=== PATIENT | female | born 1955 | race Caucasian/White ===

== ENCOUNTER 2017-01-18 09:14 | Emergency (ER) | payer MEDICARE ==
--- NOTE | 2017-01-18 09:57 | ED ---
Lower Extremity Injury HPI - General Chief Complaint: Extremity Injury, Lower Stated Complaint: RT ANKLE INJURY Time Seen by Provider: 01/18/17 09:38 Source: patient, RN notes reviewed Mode of arrival: wheelchair Limitations: no limitations - History of Present Illness Initial Comments: 61-year-old female presents to the emergency department with a chief complaint of right ankle and right foot pain. Patient felt this pain last night after playing with her dog. Patient states that she felt her ankle roll and she felt and heard a pop. Patient states that she hasn't had any other symptoms with this. Patient states that she is able to injury however with pain. Patient states she had not got home which she took but that did not seem to help with the pain either. Patient states it hurts all the way into the foot. Patient states that she has not had any other symptoms with this. Patient denies any other injury from the incident. Patient states the pain is moderate. Patient states symptoms that'll shoot all the way up the leg. Patient denies any recent fever, chills, shortness of breath, chest pain, back pain, abdominal pain, nausea vomiting, numbness or tingling, dysuria or hematuria, constipation or diarrhea, headaches or visual changes, or any other current symptoms. - Related Data Previous Rx's Medication Instructions Recorded Ibuprofen [Motrin] 600 mg PO Q6HR PRN #20 tab 01/18/17 Allergies Allergy/AdvReac Type Severity Reaction Status Date / Time Sulfa (Sulfonamide AdvReac Anaphylaxis Verified 01/18/17 09:28 Antibiotics) Review of Systems ROS Statement: Those systems with pertinent positive or pertinent negative responses have been documented in the HPI. ROS Other: All systems not noted in ROS Statement are negative. Past Medical History History of Any Multi-Drug Resistant Organisms: None Reported Past Psychological History: No Psychological Hx Reported Smoking Status: Never smoker Past Alcohol Use History: None Reported Past Drug Use History: None Reported General Exam - General Exam Comments Initial Comments: General: The patient is awake and alert, in no distress, and does not appear acutely ill. Neck: The neck is supple, there is no tenderness. Cardiovascular: There is a regular rate and rhythm. No murmur, rub or gallop is appreciated. Respiratory: Lungs are clear to auscultation, respirations are non-labored, breath sounds are equal. No wheezes, stridor, rales, or rhonchi. Musculoskeletal: Sensation intact to plus pulses. Right lower extremity. Full range of motion of right knee with no proximal tenderness. Patient does have tenderness over the lateral malleolus and along the forefoot with associated swelling. No tenderness to palpation along the medial malleolus. Less than 2 capillary refill throughout. Neurological: CN II-XII intact, There are no obvious motor or sensory deficits. Coordination appears grossly intact. Speech is normal. Skin: Skin is warm and dry and no rashes or lesions are noted. Psychiatric: Normal mood and affect. Limitations: no limitations Course Vital Signs 01/18/17 09:24 Temperature 987.7 F H Pulse Rate 75 Respiratory 20 Rate Blood Pressure 124/84 O2 Sat by Pulse 98 Oximetry Procedures - Orthopedic Splinting/Casting Injury #1 Side: right Lower Extremity Injury Location: ankle Lower Extremity Immobilizer: AirCast, Christiano wrap Medical Decision Making - Medical Decision Making 61-year-old female presents with a right foot and ankle injury. This and x- rays reviewed that show possible old injury. At this time patient's pain is more along the forefoot then at the location of the distal fibula. At this time we discussed we'll place an Christiano bandage as well as an Aircast we discussed with her for crutches. We did discuss the possibility of this being a new fracture versus an old fracture and we discussed follow-up with orthopedic for continued care. We discussed ice he did this using her home [place] as we discussed use Motrin as well for pain control. We discussed all the patient's questions. She stated that she understood and is in agreement plan. This time she will be discharged home. - Radiology Data Radiology results: report reviewed, image reviewed Disposition Clinical Impression: Right ankle sprain Disposition: HOME SELF-CARE Condition: Stable Instructions: Ankle Sprain (ED) Additional Instructions: Please use medication as discussed. Please follow up with family doctor if symptoms have not improved over the next two days. Please return to the emergency room if your symptoms increase or worsen or for any other concerns. Prescriptions: Ibuprofen [Motrin] 600 mg PO Q6HR PRN #20 tab PRN Reason: Pain Referrals: Corey Castro MD [Primary Care Provider] - 1-2 days Justino Blanchard MD [STAFF PHYSICIAN] - 1-2 days Time of Disposition: 10:41
--- NOTE | 2017-01-18 10:31 | XR ---
Right ankle HISTORY: Trauma and pain 3 views of the right ankle Correlation to right foot same date Bone mineralization is maintained. Ossific density distal to the fibula appears well-corticated and i s felt not likely to be acute. No dislocation. There is a plantar calcaneal spur. IMPRESSION: Suspect old trauma distal fibula.
--- NOTE | 2017-01-18 10:32 | XR ---
Right foot HISTORY: Trauma and pain 3 views of the right foot correlated to right ankle same date The ossific density distal to the fibula appears well-corticated. Alignment, joint spaces, bone elevator examiner alization are maintained. No evident dislocation. Some degenerative changes are present. There is a p lantar calcaneal spur. IMPRESSION: No acute osseous injury.
[2017-01-18] MEDS ORDERED: KETOROLAC 60 MG/2 ML VIAL IM STA (10:39)
[2017-01-18 11:16] VITALS: BP 128/81; PULSE 90; RESP 16; TEMP 97.9
== END 2017-01-18 11:21 | disposition home or self-care (01) ==
LOC: EC 09:14
DX: S93.401A Sprain of unspecified ligament of right ankle, initial encounter (principal); Z88.2 Allergy status to sulfonamides; X50.9XXA Other and unspecified overexertion or strenuous movements or postures, initial encounter; Y93.89 Activity, other specified
CPT/HCPCS: 29515; 96372 ×2; 99283 ×2; 73610; 73630; J1885

== ENCOUNTER → 2017-11-10 | Outpatient (CLI) | payer MEDICARE ==
--- NOTE | 2017-11-10 13:30 | XR ---
EXAMINATION TYPE: XR chest 2V DATE OF EXAM: 11/10/2017 COMPARISON: 11/06/2015 TECHNIQUE: PA and lateral views submitted. HISTORY: Cough and congestion FINDINGS: The lungs are clear and there is no pneumothorax, pleural effusion, or focal pneumonia. Hypertrophic and degenerative change of the spine. Arthropathy of the shoulders. No overt failure. IMPRESSION: 1. No acute process.
--- NOTE | 2017-11-16 07:49 | CDI ---
Last Revision, October 2017 Documentation Clarification Form Date: 11/12/2017 11:07:00 AM From: Vinita Avitia Admit Date: 11/10/2017 4:04:00 PM Patient Name: Ramirez Grace Visit Number: [id number] ATTENTION: The Clinical Documentation Specialists (CDI) and [facility] Coding Staff appreciate your assistance in clarifying documentation. Please respond to the clarification below the line at the bottom and electronically sign. The CDI & [facility] Coding staff will review the response and follow-up if needed. Please note: Queries are made part of the Legal Health Record. If you have any questions, please contact the author of this message via ITS. Dr. Rebecca Plascencia, Karla Melendez N.PJoe, History/Risk Factors:. bypass/ cabg, CAD, HTN Clinical Indicators: Vital Signs on admission: T 97.6, P 76, R 18, 157/69 , 96% RA BNP: ON ADMISSION 9640 Echocardiogram Results from 11/11: left ventricular systolic function is low- normal EF 50-55% Chest X Ray: findings likely represent CHF with right pleural effusion Treatment: Lasix 20mg IV Q 6hr Cardiology consult In your professional opinion, can you please clarify the type of CHF if known? Acute Systolic Heart Failure Acute Diastolic Heart Failure Acute Systolic & Diastolic Heart Failure Other, please specify Please continue to document in your progress notes and discharge summary in order to capture severity of illness and risk of mortality. Include clinical findings that support your diagnosis. MTDD
== END ==
LOC: RADXRMAIN 13:04
PROVIDERS: ATTEND Internal Medicine Rheumatology
DX: M31.30 Wegener's granulomatosis without renal involvement (principal)
CPT/HCPCS: 71046

== ENCOUNTER → 2018-01-27 | Outpatient (CLI) | payer MEDICARE ==
--- NOTE | 2018-01-27 09:12 | MR ---
EXAMINATION TYPE: MR shoulder LT wo con DATE OF EXAM: 01/27/2018 COMPARISON: NONE HISTORY: Joint derangements of left shoulder TECHNIQUE: Multiplanar, multisequence imaging of the left shoulder is performed without contrast. FINDINGS: Rotator Cuff: There is a partial through thickness tear at the insertion of the infraspinatus tendon posterior fibe rs measuring approximately 1.2 cm. There is thickening and intrasubstance signal at the insertion of the supraspinatus tendon measuring 1.4 cm with no retraction. Tendinosis and partial intrasubstance tear presence. There is edema at the insertion of the subscapularis tendon compatible with partial tear. Acromioclavicular Joint: There is hypertrophic arthropathy of the AC joint with mild mass effect upon the rotator cuff. Glenohumeral Joint: There is a small joint effusion. There is edema along the inferior margin of the inferior glenohumeral ligament which appears intact. IGL sprain suggested. Labrum: There is abnormal signal involving the superior labrum anteriorly compatible with tear. Biceps Tendon: Biceps tendon appears to be diminutive in size. There is significant increased fluid s urrounding the biceps tendon as well as soft tissue edema compatible with tendinosis and synovitis. Bone marrow signal: No focal abnormal marrow signal is appreciated. Other: There is abnormal signal surrounding the insertion of the pectoralis major within the proximal humerus compatible with tendinosis and intrasubstance strain. IMPRESSION: 1. There is a 1.2 cm through thickness tear involving the posterior fibers of the infraspinatus tendo n. 2. There is tendinosis and intrasubstance tear involving the supraspinatus tendon with no evidence of retraction or full-thickness tear. 3. Partial intrasubstance tear insertion subscapularis tendon. 4. IGL sprain . 5. Bicipital tendinosis and synovitis. 6. There is edema at the insertion of the pectoralis major within the proximal humerus compatible wit h tendinosis and intrasubstance strain. 7. Anterior superior labral tear.
== END | disposition home or self-care (01) ==
LOC: RADMRIMAIN 08:17
PROVIDERS: ATTEND Family Medicine
DX: S46.012A Strain of muscle(s) and tendon(s) of the rotator cuff of left shoulder, initial encounter (principal); S43.402A Unspecified sprain of left shoulder joint, initial encounter; M67.814 Other specified disorders of tendon, left shoulder; M75.22 Bicipital tendinitis, left shoulder

== ENCOUNTER → 2020-08-30 | Outpatient (CLI) | payer MEDICARE | END | disposition home or self-care (01) | LOC: LABWHC1 15:19 | PROVIDERS: ATTEND Family Medicine | DX: Z03.89 Encounter for observation for other suspected diseases and conditions ruled out (principal) | CPT/HCPCS: U0003; C9803 ==

== ENCOUNTER → 2021-01-10 | Outpatient (CLI) | payer MEDICARE ==
--- NOTE | 2021-01-10 10:20 | BD ---
EXAMINATION TYPE: Axial Bone Density DATE OF EXAM: 01/10/2021 COMPARISON: NONE CLINICAL HISTORY: Height: 62 Weight: 193.4 FRAX RISK QUESTIONS: Alcohol (3 or more units per day): no Family History (Parent hip fracture): yes Glucocorticoids (More than 3mos): no (Ex: prednisone, prednisolone, methylprednisolone, dexamethasone, and hydrocortisone). History of Fracture in Adulthood: yes Secondary Osteoporosis: 1. Type 1 Diabetes: no 2. Hyperthyroidism: no 3. Menopause before 45: no 4. Malnutrition: no 5. Chronic liver disease: no Rheumatoid Arthritis: yes Current Tobacco Use: no RISK FACTORS HISTORY OF: History of Wrist Fracture: bilateral wrist Family History of Osteoporosis: no Active: no Diet low in dairy products/other sources of calcium: yes Postmenopausal woman: 44 Lost more than 2 inches in height since high school: no MEDICATIONS: pain meds Thyroid Medications: thyroid How Lon years Additional History: EXAM MEASUREMENTS: Bone mineral densitometry was performed using the AAMPP System. Bone mineral density as measured about the Lumbar spine is: ----- L1-L4(G/cm2): 1.192 T Score Values are as follows: ----- L2: -0.4 ----- L3: 0.5 ----- L4: 0.2 ----- L1-L4: 0.1 Bone mineral density has: decreased -1.9 % since study of: 08.06.2015 Bone mineral density about the R hip (g/cm2): 0.758 Bone mineral density about the L hip (g/cm2): 0.752 T Score values are as follows: -----R Neck: -2.0 -----L Neck: -2.1 -----R Total: -1.4 -----L Total: -1.5 Bone mineral density has: decreased -5.5 % since study of: 08.06.2015 IMPRESSION: Osteopenia (T Score between -2.5 and -1). There is slightly increased risk of fracture and the patient may be considered for treatment. Re-Screen 2-5 years. NOTE: T-SCORE=SD OF THE YOUNG ADULT MEAN.
== END ==
LOC: RADBDWWP 08:26
PROVIDERS: ATTEND Family Medicine
DX: M85.89 Other specified disorders of bone density and structure, multiple sites (principal); Z78.0 Asymptomatic menopausal state
CPT/HCPCS: 77080

== ENCOUNTER 2021-03-22 14:00 | Emergency (ER) | payer MEDICARE ==
[2021-03-22 14:56] VITALS: BP 175/98; PULSE 71; RESP 18; TEMP 97.4
--- NOTE | 2021-03-22 15:34 | ED ---
Skin/Abscess/FB HPI - General Chief complaint: Skin/Abscess/Foreign Body Stated complaint: Bruise & lump on L elbow Time Seen by Provider: 03/22/21 15:10 Source: patient Mode of arrival: ambulatory Limitations: no limitations - History of Present Illness Initial comments: 65-year-old male presents to the emergency room with a chief complaint of a lump and some bruising. Patient reports this started about 2-3 days ago when she noticed a small "lump" on the dorsal aspect of her left proximal forearm. Patient reports the lesion increased in size but then it decreased drastically and she began to develop surrounding ecchymosis. Patient reports the area is slightly tender to palpation but not significant. Denies any overlying scaly skin changes. Denies any chest pain shortness of breath. Denies any recent blood work in the region. Denies any injuries. States she has full range of motion in the elbow joint. No paresthesias. - Related Data Previous Rx's Medication Instructions Recorded Ibuprofen [Motrin] 600 mg PO Q6HR PRN #20 tab 01/18/17 Allergies Allergy/AdvReac Type Severity Reaction Status Date / Time Sulfa (Sulfonamide AdvReac Anaphylaxis Verified 03/22/21 14:56 Antibiotics) Review of Systems ROS Statement: Those systems with pertinent positive or pertinent negative responses have been documented in the HPI. ROS Other: All systems not noted in ROS Statement are negative. Past Medical History Past Medical History: Hypertension Additional Past Medical History / Comment(s): hypothryoidism. chronic pain History of Any Multi-Drug Resistant Organisms: None Reported Past Surgical History: No Surgical Hx Reported, Section Additional Past Surgical History / Comment(s): rotator cuff. bowel obstruction Past Psychological History: No Psychological Hx Reported Smoking Status: Never smoker Past Alcohol Use History: Occasional Past Drug Use History: None Reported General Exam Limitations: no limitations General appearance: alert, in no apparent distress, obese Head exam: Present: atraumatic, normocephalic, normal inspection Eye exam: Present: normal appearance, PERRL, EOMI Pupils: Present: normal accommodation ENT exam: Present: normal exam, normal oropharynx, mucous membranes moist, TM's normal bilaterally, normal external ear exam Neck exam: Present: normal inspection, full ROM. Absent: tenderness Respiratory exam: Present: normal lung sounds bilaterally. Absent: respiratory distress, wheezes, rales Cardiovascular Exam: Present: regular rate, normal rhythm, normal heart sounds. Absent: systolic murmur Extremities exam: Present: full ROM, tenderness (Slight tenderness at the lesion site), normal capillary refill, other (Palpable ulnar and radial pulses bladder.). Absent: normal inspection (Small mass measuring approximately 1 cm on the dorsal aspect of the left proximal forearm. There is surrounding ecchymosis up to 10 cm in diameter with a lesion in the center.), pedal edema, joint swelling, calf tenderness Back exam: Present: normal inspection, full ROM. Absent: tenderness, CVA tenderness (R), CVA tenderness (L) Neurological exam: Present: alert, oriented X3 Psychiatric exam: Present: normal affect, normal mood Skin exam: Present: warm, dry, intact, normal color Course Vital Signs 03/22/21 14:51 Temperature 97.4 F L Pulse Rate 71 Respiratory 18 Rate Blood Pressure 175/98 O2 Sat by Pulse 98 Oximetry Medical Decision Making - Medical Decision Making 65-year-old female presents to the emergency department with a chief complaint of a lump and bruising. on Physical examination, I suspect a superficial venous thrombus. Likely has ruptured causing the surrounding ecchymosis. Advised to take ibuprofen and apply warm, persisted region. No chest pain or shortness of breath. Vitals within normal limits. Return parameters discussed the patient was understanding and agreeable. Case discussed with Dr. Cui Disposition Clinical Impression: Superficial venous thrombosis of arm Disposition: HOME SELF-CARE Condition: Stable Instructions (If sedation given, give patient instructions): Superficial Thrombophlebitis (ED) Additional Instructions: Take ibuprofen. Apply warm compress. Return to emergency department if symptoms worsen. Is patient prescribed a controlled substance at d/c from ED?: No Referrals: Corey Castro MD [Primary Care Provider] - 1-2 days Time of Disposition: 15:34
== END 2021-03-22 15:41 | disposition home or self-care (01) ==
LOC: EC 14:00
DX: I82.612 Acute embolism and thrombosis of superficial veins of left upper extremity (principal); I10 Essential (primary) hypertension; E03.9 Hypothyroidism, unspecified
CPT/HCPCS: 99283

== ENCOUNTER 2021-07-17 10:24 | Day surgery (SDC) | payer MEDICARE ==
[2021-07-16 09:53] VITALS: BMI 33.8
[~2021-07-17 10:24] MED LIST: LACTATED RINGERS 1,000 ML IV SCH
[2021-07-17 10:58] VITALS: TEMP 98
[2021-07-17] MEDS ORDERED: PROPOFOL 10 MG/ML 20 ML VIAL IV ONE (11:55)
[2021-07-17] MEDS ORDERED: LIDOCAINE 1% INJ 10MG/ML (20 ML MDV) ONE (11:55)
--- NOTE | 2021-07-17 12:20 | P.PCN ---
Date of Procedure: 07/17/21 Procedure(s) Performed: BRIEF HISTORY: Patient is a 65-year-old pleasant female scheduled for an elective colonoscopy as a part of screening for colon rectal neoplasia. PROCEDURE PERFORMED: Colonoscopy. PREOPERATIVE DIAGNOSIS: Screening for colon cancer. IV sedation per Anesthesia. PROCEDURE: After informed consent was obtained, the patient, was brought into the endoscopy unit. IV sedation was administered by Anesthesia under continuous monitoring. Digital rectal examination was normal. Initially the Olympus CF-160 flexible video colonoscope was then inserted in the rectum, gradually advanced into the cecum without any difficulty. Careful examination was performed as the scope was gradually being withdrawn. Ileocecal valve and the appendiceal orifice were visualized and appeared normal. Prep was poor in the right colon and thorough irrigation was performed using irrigation system. The visualized portions of the mucosa of the cecum and ascending colon appeared normal. The rest of the transverse colon, descending colon, sigmoid colon, and rectum appeared normal. Retroflexion was performed in the rectum and no lesions were seen. The patient tolerated the procedure well. IMPRESSION: Normal-appearing colon from rectum to cecum with no evidence of colorectal neoplasia . RECOMMENDATIONS: Findings of this examination were discussed with the patient as well as her family. She was advised to have a repeat screening colonoscopy in 10 years
[2021-07-17 12:48] VITALS: BP 158/85; PULSE 65; RESP 20
== END 2021-07-17 13:00 | disposition home or self-care (01) ==
LOC: ORWHC2ENDO 10:24
PROVIDERS: ATTEND Internal Medicine Gastroenterology
DX: Z12.11 Encounter for screening for malignant neoplasm of colon (principal); I10 Essential (primary) hypertension; M31.30 Wegener's granulomatosis without renal involvement; Z79.890 Hormone replacement therapy; Z79.82 Long term (current) use of aspirin; Z79.899 Other long term (current) drug therapy
CPT/HCPCS: J2001; J2704; G0121; 45378

== ENCOUNTER → 2021-08-23 | Outpatient (CLI) | payer MEDICARE | END | disposition home or self-care (01) | LOC: LABWHC1 12:49 | PROVIDERS: ATTEND Family Medicine | DX: Z20.822 Contact with and (suspected) exposure to COVID-19 (principal); J06.9 Acute upper respiratory infection, unspecified | CPT/HCPCS: 87502; U0003; C9803; U0005 ==

== ENCOUNTER → 2021-09-04 | Outpatient (CLI) | payer MEDICARE ==
--- NOTE | 2021-09-04 09:27 | US ---
EXAMINATION TYPE: US abdomen complete DATE OF EXAM: 09/04/2021 COMPARISON: NONE CLINICAL HISTORY: 65-year-old female R10.13 Epigastric Pain. TECHNIQUE: Multiple sonographic images of the abdomen are obtained. FINDINGS: EXAM MEASUREMENTS: Liver Length: 15.7 cm Gallbladder Wall: 0.1 cm CBD: 0.3 cm Spleen: 7.8 cm Right Kidney: 9.8x5.9x4.9 cm Left Kidney: 11.1x4.5x5.6 cm Pancreas: Suboptimal visualization of the pancreatic tail due to shadowing from bowel gas. Visualize d portions within normal limits. Liver: No gross abnormality. Gallbladder: Multiple shadowing mobile echogenic foci largest measuring 1.8cm. No abnormal gallbladd er distention, wall thickening, or pericholecystic fluid. Evidence for sonographic Blanchard's sign: No CBD: wnl Spleen: wnl Right Kidney: wnl Left Kidney: wnl Upper IVC: wnl Abd Aorta: Plaque seen distally IMPRESSION: Multiple mobile gallstones measuring up to 1.8 cm. No biliary ductal dilatation or other specific abn ormality seen.
== END | disposition home or self-care (01) ==
LOC: RADUSWWP 06:58
PROVIDERS: ATTEND Family Medicine
DX: K80.20 Calculus of gallbladder without cholecystitis without obstruction (principal)
CPT/HCPCS: 76700

== ENCOUNTER → 2021-09-10 | Outpatient (CLI) | payer MEDICARE | END | disposition home or self-care (01) | LOC: LABWHC1 11:35 | PROVIDERS: ATTEND Surgery Plastic and Reconstructive Surgery | DX: I11.9 Hypertensive heart disease without heart failure (principal) | CPT/HCPCS: 93005 ==

== ENCOUNTER 2021-09-11 07:35 | Day surgery (SDC) | payer MEDICARE ==
[2021-09-10 14:02] VITALS: BMI 33.8
[2021-09-11] MEDS ORDERED: LACTATED RINGERS 1,000 ML IV ONE (08:09)
[2021-09-11] MEDS ORDERED: PROPOFOL 10 MG/ML 20 ML VIAL IV ONE (08:32)
--- NOTE | 2021-09-11 08:35 | P.GSHP ---
History of Present Illness H&P Date: 09/11/21 CHIEF COMPLAINT: GERD HISTORY OF PRESENT ILLNESS: The patient is a 65-year-old female who presents reports gastroesophageal reflux disease. Upper endoscopy was offered for further evaluation and management. PAST MEDICAL HISTORY: Please see list. PAST SURGICAL HISTORY: Please see list. MEDICATIONS: Please see list. ALLERGIES: Please see list. SOCIAL HISTORY: No illicit drug use FAMILY HISTORY: No reports of Crohn disease or ulcerative colitis. REVIEW OF ORGAN SYSTEMS: CONSTITUTIONAL: No reports of fevers or chills. GI: Denies any blood in stools or constipation. PHYSICAL EXAM: VITAL SIGNS: Stable GENERAL: Well-developed and pleasant in no acute distress. HEENT: No scleral icterus. Extraocular movements grossly intact. Moist buccal mucosa. NECK: Supple without lymphadenopathy. CHEST: Unlabored respirations. Equal bilateral excursions. CARDIOVASCULAR: Regular rate and rhythm. Distal 2+ pulses. ABDOMEN: Soft, nondistended. MUSCULOSKELETAL: No clubbing, cyanosis, or edema. ASSESSMENT: 1. Gastroesophageal reflux disease PLAN: 1. Recommend proceeding with an upper endoscopy Past Medical History Past Medical History: No Reported History, Fibromyalgia, Hyperlipidemia, Hypertension, Osteoarthritis (OA), Thyroid Disorder Additional Past Medical History / Comment(s): daniel's disease, hx "low intestinal pain and gurgling", hx gout, History of Any Multi-Drug Resistant Organisms: None Reported Past Surgical History: Bowel Resection, Section, Orthopedic Surgery, Tonsillectomy Additional Past Surgical History / Comment(s): colonoscopy, bowel resection for obstruction, rotator cuff left shoulder, surgery left wrist after injury Past Anesthesia/Blood Transfusion Reactions: No Reported Reaction Smoking Status: Never smoker - Past Family History Mother Family Medical History: Cancer Father Family Medical History: Cancer Medications and Allergies Home Medications Medication Instructions Recorded Confirmed Type ALPRAZolam [Xanax] 0.5 mg PO BID PRN 07/16/21 09/11/21 History Albuterol Inhaler [Ventolin Hfa 2 puff INHALATION Q6HR PRN 07/16/21 09/11/21 History Inhaler] HYDROcodone/APAP 10-325MG [[place] 1 tab PO Q6HR PRN 07/16/21 09/11/21 History 10-325] Levothyroxine Sodium [Synthroid] 100 mcg PO DAILY 07/16/21 09/11/21 History amLODIPine [Norvasc] 5 mg PO DAILY 07/16/21 09/11/21 History Allergies Allergy/AdvReac Type Severity Reaction Status Date / Time Sulfa (Sulfonamide AdvReac Anaphylaxis Verified 09/10/21 13:57 Antibiotics) Surgical - Exam Vital Signs Temp Pulse Resp BP Pulse Ox 97.2 F L 67 16 167/99 96 09/11/21 07:59 09/11/21 07:59 09/11/21 07:59 09/11/21 07:59 09/11/21 07:59
--- NOTE | 2021-09-11 08:55 | P.PCN ---
Date of Procedure: 09/11/21 Description of Procedure: PREOPERATIVE DIAGNOSIS: Gastroesophageal reflux disease. Epigastric abdominal pain History of hiatal hernia POSTOPERATIVE DIAGNOSIS: Gastritis. Gastroesophageal reflux disease. OPERATION: Esophagogastroduodenoscopy with biopsies along antrum and duodenum SURGEON: Mary Jane Juárez MD ANESTHESIA: MAC. INDICATIONS: The patient is a 65-year-old female who presents with a history of reflux disease. Benefits and risks of the procedure were described. Informed consent was obtained. DESCRIPTION: The patient was brought into the endoscopy suite and laid in the left lateral decubitus position. An Olympus gastroscope was passed along the posterior oropharynx down to the distal esophagus where the squamocolumnar junction was encountered at 38 cm from the incisors. The stomach was entered and no bile reflux was found. Additional findings are listed below. Biopsies with cold forceps were obtained of the antrum. The first through third portion of the duodenum was examined and cold forceps biopsies were obtained. Retroflexion of the scope confirmed Hill grade 2 lower esophageal valve. The squamocolumnar junction demonstrated LA grade A erosive esophagitis. The stomach was desufflated. The patient tolerated the procedure well. FINDINGS: Squamocolumnar junction 38 cm from the incisors. Diaphragmatic hiatus at 38 cm. Hill grade 2 lower esophageal valve. LA grade A erosive esophagitis. Cold forceps biopsies obtained of duodenum Chronic gastritis RECOMMENDATIONS: Upper endoscopy as needed. Plan - Discharge Summary Discharge Rx Participant: No New Discharge Prescriptions: Continue ALPRAZolam [Xanax] 0.5 mg PO BID PRN PRN Reason: Anxiety HYDROcodone/APAP 10-325MG [[place] 10-325] 1 tab PO Q6HR PRN PRN Reason: Pain Albuterol Inhaler [Ventolin Hfa Inhaler] 2 puff INHALATION Q6HR PRN PRN Reason: sob amLODIPine [Norvasc] 5 mg PO DAILY Levothyroxine Sodium [Synthroid] 100 mcg PO DAILY Discharge Medication List ALPRAZolam [Xanax] 0.5 mg PO BID PRN 07/16/21 [History] Albuterol Inhaler [Ventolin Hfa Inhaler] 2 puff INHALATION Q6HR PRN 07/16/21 [History] HYDROcodone/APAP 10-325MG [[place] 10-325] 1 tab PO Q6HR PRN 07/16/21 [History] Levothyroxine Sodium [Synthroid] 100 mcg PO DAILY 07/16/21 [History] amLODIPine [Norvasc] 5 mg PO DAILY 07/16/21 [History] Follow up Appointment(s)/Referral(s): Mary Jane Juárez MD [STAFF PHYSICIAN] - 09/17/21 Patient Instructions/Handouts: *Surgery [facility] - (Anesthesia) Endoscopy Discharge Instructions, Upper Endoscopy (DC) Discharge Disposition: HOME SELF-CARE
[2021-09-11 09:03] VITALS: RESP 16
[2021-09-11 09:40] LABS: Basophils % (A) 1 %; Eosinophils # (A) 0.2 k/uL (0-0.7); Eosinophils % (A) 3 %; HGB 11.8 gm/dL (11.4-16.0); Lymphocytes # (A) 1.8 k/uL (1.0-4.8); Lymphocytes % (A) 26 %; MCH 31.6 pg (25.0-35.0); MCHC 33.8 g/dL (31.0-37.0); MCV 93.4 fL (80.0-100.0); Mean Platelet Volume 6.9; Monocytes # (A) 0.5 k/uL (0-1.0); Monocytes % (A) 7 %; Neutrophils # (A) 4.2 k/uL (1.3-7.7); Neutrophils % (A) 62 %; Platelet Count 352 k/uL (150-450); RBC 3.75 m/uL (3.80-5.40); RDW 12.5 % (11.5-15.5); WBC 6.9 k/uL (3.8-10.6)
--- NOTE | 2021-09-11 10:23 | P.PN ---
Progress Note - Text Progress Note Date: 09/11/21 Patient reports new fevers last night and increasing epigastric pain with history of gallstones. CBC and CMP being obtained for acute cholecystitis.
[2021-09-11 10:32] LABS: ALT 12 U/L (4-34); AST 20 U/L (14-36); African American GFR (CKD) >90 (>60 ml/min/1.73 sqM); Albumin 3.8 g/dL (3.5-5.0); Alkaline Phosphatase 118 U/L (38-126); Anion Gap 6 mmol/L; Blood Urea Nitrogen 8 mg/dL (7-17); Calcium 9.5 mg/dL (8.4-10.2); Carbon Dioxide 27 mmol/L (22-30); Chloride 106 mmol/L (98-107); Glucose 104 mg/dL (74-99); Non-African American GFR(CKD) >90 (>60 ml/min/1.73 sqM); Potassium 3.2 mmol/L (3.5-5.1); Sodium 139 mmol/L (137-145); Total Bilirubin 0.4 mg/dL (0.2-1.3)
--- NOTE | 2021-09-11 10:58 | P.PN ---
Progress Note - Text Progress Note Date: 09/11/21 Notified by RN labs reviewed with low potassium. EKG reviewed with new lateral ischemia with patient in atypical chest pain. Recommend ER assessment for chest pain and abnormal EKG for myocardial ischemia.
[2021-09-11 11:29] VITALS: TEMP 98.9
[2021-09-11 12:43] VITALS: BP 179/87; PULSE 77
--- NOTE | 2021-09-11 13:34 | P.CRDCN ---
History of Present Illness History of present illness: HISTORY OF PRESENTING ILLNESS This is a pleasant 65-year-old female past medical history significant for hypothyroidism and hypertension and GERD. 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 We have been asked to see in consultation for abnormal EKG prior to EGD. Patient is seen and examined in phase II Recovery. She is post-op from an EGD with [facility]. She is getting an EGD done because she was having some epigastric abdominal pain. Patient's EKG prior to the EGD revealed sinus rhythm HR 74, non-specific ST-T abnormalities, no evidence of acute ischemia. Patient denies chest pain, shortness of breath, leg weakness, dizziness, palpitations. She denies symptoms of orthopnea or PND. She denies any history of NC, coronary disease, stroke, diabetes. She is a non/never smoker. She endorses some difficulty urinating. Her EGD revealed squamocolumnar junction 38 cm from the incisors., Diaphragmatic hiatus at 38 cm. LA grade A erosive esophagitis. Cold forceps biopsies obtained of duodenum. Chronic gastritis DIAGNOSTICS CBC unremarkable, sodium 139, potassium 3.2, BUN 8, serum creatinine 0.4. Current home medications include amlodipine 5 mg daily, synthroid 100mcg daily, Xanax PRN REVIEW OF SYSTEMS At the time of my exam: CONSTITUTIONAL: Denies fever or chills. CARDIOVASCULAR: Denies chest pain, shortness of breath, orthopnea, PND or palpitations. RESPIRATORY: Denies cough. GASTROINTESTINAL: + abdominal pain,Denies diarrhea, constipation, nausea or vomiting. MUSCULOSKELETAL: Denies myalgias. NEUROLOGIC: Denies numbness, tingling, headacbe or weakness. ENDOCRINE: Denies fatigue, weight change, polydipsia or polyurina. GENITOURINARY: Denies burning, hematuria or urgency with micturation. HEMATOLOGIC: Denies history of anemia or bleeding. PHYSICAL EXAMINATION Blood pressure 179/87, heart rate 77, afebrile, maintaining sats saturations on room air CONSTITUTIONAL: No apparent distress. HEENT: Head is normocephalic. Pupils are equal, round. Sclerae anicteric. Mucous membranes of the mouth are moist. No JVD. No carotid bruit. CHEST EXAMINATION: Lungs are clear to auscultation. No chest wall tenderness is noted on palpation or with deep breathing. HEART EXAMINATION: Regular rate and rhythm. S1, S2 heard. Systolic ejection murmur noted. ABDOMEN: Soft, nontender. Positive bowel sounds. EXTREMITIES: 2+ peripheral pulses, no lower extremity edema and no calf tenderness. NEUROLOGIC EXAMINATION: Patient is awake, alert and oriented x3. ASSESSMENT EKG with non-specific ST-T abnormalities, likely due to patient's hypertension history History of hypertension GERD History of hypothyroidism PLAN No acute changes on EKG to reflect ischemia. From cardiology perspective, patient stable to be discharged home. Follow-up with Dr. Plascencia in the office in one week. Nurse Practitioner note has been reviewed, I agree with a documented findings and plan of care. Patient was seen and examined. Past Medical History Past Medical History: No Reported History, Fibromyalgia, Hyperlipidemia, Hypertension, Osteoarthritis (OA), Thyroid Disorder Additional Past Medical History / Comment(s): daniel's disease, hx "low intestinal pain and gurgling", hx gout, History of Any Multi-Drug Resistant Organisms: None Reported Past Surgical History: Bowel Resection, Section, Orthopedic Surgery, Tonsillectomy Additional Past Surgical History / Comment(s): colonoscopy, bowel resection for obstruction, rotator cuff left shoulder, surgery left wrist after injury Past Anesthesia/Blood Transfusion Reactions: No Reported Reaction Smoking Status: Never smoker - Past Family History Mother Family Medical History: Cancer Father Family Medical History: Cancer Medications and Allergies Home Medications Medication Instructions Recorded Confirmed Type ALPRAZolam [Xanax] 0.5 mg PO BID PRN 07/16/21 09/11/21 History Albuterol Inhaler [Ventolin Hfa 2 puff INHALATION Q6HR PRN 07/16/21 09/11/21 History Inhaler] HYDROcodone/APAP 10-325MG [[place] 1 tab PO Q6HR PRN 07/16/21 09/11/21 History 10-325] Levothyroxine Sodium [Synthroid] 100 mcg PO DAILY 07/16/21 09/11/21 History amLODIPine [Norvasc] 5 mg PO DAILY 07/16/21 09/11/21 History Allergies Allergy/AdvReac Type Severity Reaction Status Date / Time Sulfa (Sulfonamide AdvReac Anaphylaxis Verified 09/10/21 13:57 Antibiotics) Physical Exam Vitals: Vital Signs Temp Pulse Resp BP Pulse Ox 09/11/21 12:24 77 16 179/87 99 09/11/21 11:24 98.9 F 72 16 163/79 99 09/11/21 09:02 66 16 126/70 95 09/11/21 08:47 74 12 138/64 94 L 09/11/21 07:59 97.2 F L 67 16 167/99 96 Intake and Output 09/10/21 09/11/21 09/11/21 22:59 06:59 14:59 Intake Total 700 Balance 700 Intake: IV 700 Other: Weight 83.3 kg Results 09/11/21 09:25 09/11/21 09:50 Cardiac Enzymes 09/11/21 Range/Units 09:50 AST 20 (14-36) U/L CBC 09/11/21 Range/Units 09:25 WBC 6.9 (3.8-10.6) k/uL RBC 3.75 L (3.80-5.40) m/uL Hgb 11.8 (11.4-16.0) gm/dL Hct 35.0 (34.0-46.0) % Plt Count 352 (150-450) k/uL Comprehensive Metabolic Panel 09/11/21 Range/Units 09:50 Sodium 139 (137-145) mmol/L Potassium 3.2 L (3.5-5.1) mmol/L Chloride 106 (98-107) mmol/L Carbon Dioxide 27 (22-30) mmol/L BUN 8 (7-17) mg/dL Creatinine 0.42 L (0.52-1.04) mg/dL Glucose 104 H (74-99) mg/dL Calcium 9.5 (8.4-10.2) mg/dL AST 20 (14-36) U/L ALT 12 (4-34) U/L Alkaline Phosphatase 118 (38-126) U/L Total Protein 7.0 (6.3-8.2) g/dL Albumin 3.8 (3.5-5.0) g/dL Intake and Output 09/10/21 09/11/21 09/11/21 22:59 06:59 14:59 Intake Total 700 Balance 700 Intake: IV 700 Other: Weight 83.3 kg Patient Weight 09/12/21 06:59 Weight 83.3 kg 09/11/21 09:25 09/11/21 09:50
== END 2021-09-11 12:45 | disposition home or self-care (01) ==
LOC: ORWHC2ENDO 07:35
PROVIDERS: ATTEND Surgery Plastic and Reconstructive Surgery
DX: K21.9 Gastro-esophageal reflux disease without esophagitis (principal); K29.50 Unspecified chronic gastritis without bleeding; K29.80 Duodenitis without bleeding; E03.9 Hypothyroidism, unspecified; I10 Essential (primary) hypertension; Z88.2 Allergy status to sulfonamides
CPT/HCPCS: 43239; 88305; 80053; 85025; J2704

== ENCOUNTER → 2021-09-16 | Outpatient (CLI) | payer MEDICARE | END | disposition home or self-care (01) | LOC: LABWHC1 12:22 | PROVIDERS: ATTEND Surgery Plastic and Reconstructive Surgery | DX: Z53.9 Procedure and treatment not carried out, unspecified reason (principal) ==

== ENCOUNTER 2021-09-18 08:03 | Inpatient (IN) | payer MEDICARE ==
[2021-09-18] MEDS ORDERED: HYDROmorphone 0.5 MG/0.5 ML SYRINGE IVP PRN (08:57)
[2021-09-18] MEDS ORDERED: NALOXONE 0.4 MG/ML 1 ML VIAL IV PRN (08:59)
--- NOTE | 2021-09-18 09:03 | ED ---
General Adult HPI - General Chief complaint: Abdominal Pain Stated complaint: Abdominal Pain Time Seen by Provider: 09/18/21 08:19 Source: patient, family Mode of arrival: ambulatory Limitations: no limitations - History of Present Illness Initial comments: Dictation was produced using [employer] dictation software. please excuse any grammatical, word or spelling errors. Chief Complaint: 65-year-old female sent in by surgeon for worsening gallbladder pain History of Present Illness: Patient's 65-year-old female she is been having rig ht upper quadrant symptoms for the last several months. Only recently did she finally get an ultrasound of her gallbladder. Patient states that she was told that she has several gallstones. She saw surgeon last week. She called her general surgeon yesterday who instructed her to go to the emergency department to be admitted for laparoscopic cholecystectomy. She states yesterday the wait was so long that she decided to wait until today. Patient denies any fevers. She denies any constitutional symptoms. Patient does have some mild symptoms in the right upper quadrant currently. Chart review shows that patient had ultrasound performed on September 04 that showed cholelithiasis. The ROS documented in this emergency department record has been reviewed and confirmed by me. Those systems with pertinent positive or negative responses have been documented in the HPI. All other systems are other negative and/or noncontributory. PHYSICAL EXAM: General Impression: Alert and oriented x3, not in acute distress HEENT: Normocephalic atraumatic, extra-ocular movements intact, pupils equal and reactive to light bilaterally, mucous membranes moist. Cardiovascular: Heart regular rate and rhythm Chest: Able to complete full sentences, no retractions, no tachypnea Abdomen: abdomen soft, tenderness in the right upper quadrant, non-distended, no organomegaly Musculoskeletal: Pulses present and equal in all extremities, no peripheral edema Motor: no focal deficits noted Neurological: CN II-XII grossly intact, no focal motor or sensory deficits noted Skin: Intact with no visualized rashes Psych: Normal affect and mood ED course: 65-year-old female presents emergency department after instruction from general surgeon come to the ER to be admitted for laparoscopic cholecystectomy. Vital signs upon arrival are within acceptable limits. Patient's well-appearing at bedside patient is afebrile with stable vital signs. Ultrasound was seen in the EMR. Case discussed with general surgeon, Dr. Juárez who requests the patient be admitted to her service. - Related Data Home Medications Medication Instructions Recorded Confirmed ALPRAZolam [Xanax] 0.5 mg PO BID PRN 07/16/21 09/11/21 Albuterol Inhaler [Ventolin Hfa 2 puff INHALATION Q6HR PRN 07/16/21 09/11/21 Inhaler] HYDROcodone/APAP 10-325MG [[place] 1 tab PO Q6HR PRN 07/16/21 09/11/21 10-325] Levothyroxine Sodium [Synthroid] 100 mcg PO DAILY 07/16/21 09/11/21 amLODIPine [Norvasc] 5 mg PO DAILY 07/16/21 09/11/21 Previous Rx's Medication Instructions Recorded Omeprazole [PriLOSEC] 40 mg PO DAILY #14 cap 09/17/21 Allergies Allergy/AdvReac Type Severity Reaction Status Date / Time Sulfa (Sulfonamide AdvReac Anaphylaxis Verified 09/18/21 08:17 Antibiotics) Review of Systems ROS Statement: Those systems with pertinent positive or pertinent negative responses have been documented in the HPI. ROS Other: All systems not noted in ROS Statement are negative. Past Medical History Past Medical History: No Reported History, Fibromyalgia, Hyperlipidemia, Hypertension, Osteoarthritis (OA), Thyroid Disorder Additional Past Medical History / Comment(s): daniel's disease, hx "low intestinal pain and gurgling", hx gout, History of Any Multi-Drug Resistant Organisms: None Reported Past Surgical History: Bowel Resection, Section, Orthopedic Surgery, Tonsillectomy Additional Past Surgical History / Comment(s): colonoscopy, bowel resection for obstruction, rotator cuff left shoulder, surgery left wrist after injury Past Anesthesia/Blood Transfusion Reactions: No Reported Reaction Past Psychological History: No Psychological Hx Reported Smoking Status: Never smoker - Past Family History Mother Family Medical History: Cancer Father Family Medical History: Cancer General Exam Limitations: no limitations Course Vital Signs 09/18/21 08:13 Temperature 98.1 F Pulse Rate 67 Respiratory 18 Rate Blood Pressure 159/88 O2 Sat by Pulse 98 Oximetry Disposition Clinical Impression: Symptomatic cholelithiasis Disposition: ADMITTED IP TO THIS HOSP Condition: Fair Referrals: Corey Castro MD [Primary Care Provider] - 1-2 days
[2021-09-18] MEDS: PANTOPRAZOLE 40 MG/10 ML VIAL IV SCH (09:11)
[2021-09-18] MEDS: SODIUM CHLORIDE 0.9% 1,000 ML IV SCH ×2 (09:11→17:47)
[2021-09-18 09:22] LABS: Basophils % (A) 1 %; Eosinophils # (A) 0.3 k/uL (0-0.7); Eosinophils % (A) 4 %; HCT 36.5 % (34.0-46.0); Lymphocytes # (A) 2.7 k/uL (1.0-4.8); Lymphocytes % (A) 39 %; MCH 30.7 pg (25.0-35.0); MCHC 32.9 g/dL (31.0-37.0); MCV 93.3 fL (80.0-100.0); Mean Platelet Volume 7.3; Monocytes # (A) 0.4 k/uL (0-1.0); Monocytes % (A) 6 %; Neutrophils # (A) 3.4 k/uL (1.3-7.7); Neutrophils % (A) 49 %; Platelet Count 518 k/uL (150-450); RBC 3.91 m/uL (3.80-5.40); RDW 12.9 % (11.5-15.5); WBC 6.9 k/uL (3.8-10.6)
[2021-09-18 09:26] LABS: Prothrombin Time 11.1 sec (9.0-12.0)
[2021-09-18 09:36] LABS: ALT 15 U/L (4-34); AST 25 U/L (14-36); African American GFR (CKD) >90 (>60 ml/min/1.73 sqM); Albumin 4.1 g/dL (3.5-5.0); Alkaline Phosphatase 146 U/L (38-126); Anion Gap 8 mmol/L; Blood Urea Nitrogen 9 mg/dL (7-17); Calcium 9.7 mg/dL (8.4-10.2); Carbon Dioxide 29 mmol/L (22-30); Chloride 103 mmol/L (98-107); Glucose 100 mg/dL (74-99); Non-African American GFR(CKD) >90 (>60 ml/min/1.73 sqM); Potassium 3.1 mmol/L (3.5-5.1); Sodium 140 mmol/L (137-145); Total Bilirubin 0.4 mg/dL (0.2-1.3); Total Protein 7.5 g/dL (6.3-8.2)
--- NOTE | 2021-09-18 11:32 | P.GSCN ---
History of Present Illness Consult date: 09/18/21 History of present illness: CHIEF COMPLAINT: Abdominal pain HISTORY OF PRESENT ILLNESS: This is a 65-year-old female with known history of gallstones. She has had intermittent episodes of right upper quadrant abdominal pain for about 4 months. Patient had an abdominal ultrasound done on 09/04 2021 outpatient that did show multiple mobile gallstones measuring up to 1.8 cm. No biliary ductal dilation or other specific abnormality seen. Patient reports that her abdominal pain became very severe over the last couple of days before she came into the ER for further evaluation. Patient reports that her pain is located in the right upper quadrant radiates to her back. She has been having intermittent fevers over the last couple weeks with nausea and episodes of vomiting. Her symptoms are worse after eating. She is currently afebrile and white count is normal. Patient denies any vomiting changes or urinary symptoms. Patient does report prior abdominal surgery of bowel resection for bowel obstruction and prior . PAST MEDICAL HISTORY: See list. PAST SURGICAL HISTORY: See list. MEDICATIONS: See list. ALLERGIES: See list. SOCIAL HISTORY: No illicit drug use. REVIEW OF SYSTEMS: CONSTITUTIONAL: Denies fever or chills. HEENT: Denies blurred vision, vision changes, or eye pain. Denies hemoptysis ENDOCRINE: Denies heat or cold intolerance. CARDIOVASCULAR: Denies chest pain or pressure. RESPIRATORY: No shortness of breath. GASTROINTESTINAL: Please refer to HPI NEURO: Denies history of seizures. PSYCH: No depression or suicidal ideation HEMATOLOGIC: Denies bleeding disorders. LYMPHATIC: The patient denies any lumps and bumps around the neck. GENITOURINARY: Denies any blood in urine or increased urinary frequency. MUSCULOSKELETAL: Denies myalgias. Denies joint swelling. Denies decreased range of motion beyond patients baseline. SKIN: Denies pruitis. Denies rash. PHYSICAL EXAM: VITAL SIGNS: Reviewed GENERAL: Well-developed in no acute distress. HEENT: No sclera icterus. Extraocular movements grossly intact. Moist buccal mucosa. Head is atraumatic, normocephalic. Hears conversational speech. No nasal drainag e. NECK: Supple without lymphadenopathy. CHEST: Non-labored respirations and equal bilateral excursions. CARDIOVASCULAR: Palpable 2+ radial pulses. ABDOMEN: Soft. Nondistended. Tenderness to palpation of the right upper quadrant MUSCULOSKELETAL: No clubbing or cyanosis. NEUROLOGIC: No focal or lateralizing signs. Cranial nerves II through XII grossly intact. PSYCH: Appropriate affect. Alert and oriented to person, place and time. SKIN: Well perfused. Good skin turgor. LABORATORY DATA: WBC is 6.9 Hgb 12.0 platelets 518 INR 1.0 Sodium 140 potassium 3.1 CR 0.50 AST and ALT normal alk phos 146 IMAGING: ASSESSMENT: 1. Acute cholecystitis 2. Symptomatic cholelithiasis 3. Right upper quadrant abdominal pain 4. Hypokalemia 5. History of hypertension 6. Hypothyroidism PLAN: -Patient scheduled for robotic cholecystectomy tomorrow, 09/19/[address] Juárez -Consult cardiology for cardiac risk assessment -Keep patient nothing by mouth except for ice chips, popsicles and medications -Continue pain medication as needed -Low potassium being replaced -Add IV antibiotics -Continue IV fluids Physician Archives Technician note has been reviewed by physician. Signing provider agrees with the documented findings, assessment, and plan of care. Past Medical History Past Medical History: No Reported History, Fibromyalgia, Hyperlipidemia, Hypertension, Osteoarthritis (OA), Thyroid Disorder Additional Past Medical History / Comment(s): daniel's disease, hx "low intestinal pain and gurgling", hx gout, History of Any Multi-Drug Resistant Organisms: None Reported Past Surgical History: Bowel Resection, Section, Orthopedic Surgery, Tonsillectomy Additional Past Surgical History / Comment(s): colonoscopy, bowel resection for obstruction, rotator cuff left shoulder, surgery left wrist after injury Past Anesthesia/Blood Transfusion Reactions: No Reported Reaction Past Psychological History: No Psychological Hx Reported Smoking Status: Never smoker - Past Family History Mother Family Medical History: Cancer Father Family Medical History: Cancer Medications and Allergies Home Medications Medication Instructions Recorded Confirmed Type ALPRAZolam [Xanax] 0.5 mg PO BID PRN 07/16/21 09/18/21 History Albuterol Inhaler [Ventolin Hfa 2 puff INHALATION Q6HR PRN 07/16/21 09/18/21 History Inhaler] HYDROcodone/APAP 10-325MG [[place] 1 tab PO Q6HR PRN 07/16/21 09/18/21 History 10-325] Levothyroxine Sodium [Synthroid] 100 mcg PO DAILY 07/16/21 09/18/21 History amLODIPine [Norvasc] 5 mg PO DAILY 07/16/21 09/18/21 History Omeprazole [PriLOSEC] 40 mg PO DAILY #14 cap 09/17/21 09/18/21 Rx Famotidine [Pepcid] 20 mg PO BID PRN 09/18/21 09/18/21 History Fluticasone Nasal [place] [Flonase 1 - 2 spray EA NOSTRIL DAILY PRN 09/18/21 09/18/21 History Nasal [place]] Allergies Allergy/AdvReac Type Severity Reaction Status Date / Time Sulfa (Sulfonamide Allergy Anaphylaxis Verified 09/18/21 10:21 Antibiotics) Surgical - Exam Vital Signs Temp Pulse Resp BP Pulse Ox 98.1 F 67 18 159/88 98 09/18/21 08:13 09/18/21 08:13 09/18/21 08:13 09/18/21 08:13 09/18/21 08:13 Results - Labs 09/18/21 09:02 09/18/21 09:02 Abnormal Lab Results - Last 24 Hours (Table) 09/18/21 09/18/21 Range/Units 09:02 09:02 Plt Count 518 H (150-450) k/uL Potassium 3.1 L (3.5-5.1) mmol/L Creatinine 0.50 L (0.52-1.04) mg/dL Glucose 100 H (74-99) mg/dL Alkaline Phosphatase 146 H (38-126) U/L Diabetes panel 09/18/21 Range/Units 09:02 Sodium 140 (137-145) mmol/L Potassium 3.1 L (3.5-5.1) mmol/L Chloride 103 (98-107) mmol/L Carbon Dioxide 29 (22-30) mmol/L BUN 9 (7-17) mg/dL Creatinine 0.50 L (0.52-1.04) mg/dL Glucose 100 H (74-99) mg/dL Calcium 9.7 (8.4-10.2) mg/dL AST 25 (14-36) U/L ALT 15 (4-34) U/L Alkaline Phosphatase 146 H (38-126) U/L Total Protein 7.5 (6.3-8.2) g/dL Albumin 4.1 (3.5-5.0) g/dL Calcium panel 09/18/21 Range/Units 09:02 Calcium 9.7 (8.4-10.2) mg/dL Albumin 4.1 (3.5-5.0) g/dL Pituitary panel 09/18/21 Range/Units 09:02 Sodium 140 (137-145) mmol/L Potassium 3.1 L (3.5-5.1) mmol/L Chloride 103 (98-107) mmol/L Carbon Dioxide 29 (22-30) mmol/L BUN 9 (7-17) mg/dL Creatinine 0.50 L (0.52-1.04) mg/dL Glucose 100 H (74-99) mg/dL Calcium 9.7 (8.4-10.2) mg/dL Adrenal panel 09/18/21 Range/Units 09:02 Sodium 140 (137-145) mmol/L Potassium 3.1 L (3.5-5.1) mmol/L Chloride 103 (98-107) mmol/L Carbon Dioxide 29 (22-30) mmol/L BUN 9 (7-17) mg/dL Creatinine 0.50 L (0.52-1.04) mg/dL Glucose 100 H (74-99) mg/dL Calcium 9.7 (8.4-10.2) mg/dL Total Bilirubin 0.4 (0.2-1.3) mg/dL AST 25 (14-36) U/L ALT 15 (4-34) U/L Alkaline Phosphatase 146 H (38-126) U/L Total Protein 7.5 (6.3-8.2) g/dL Albumin 4.1 (3.5-5.0) g/dL
--- NOTE | 2021-09-18 11:35 | P.CRDCN ---
History of Present Illness Consult date: 09/18/21 History of present illness: HISTORY OF PRESENT ILLNESS: This is a 65 year old female with a past medical history significant for hypothyroidism, anxiety, GERD, hypertension, and gallstones. Patient does not follow with a vending machine filler. However the patient did have an appointment scheduled tomorrow to establish care with Dr. Plascencia for cardiac clearance. We have been asked to see the patient in consultation for cardiac clearance. Patient presented to the hospital with a chief complaint of abdominal pain. She is scheduled to undergo robotic cholecystectomy tomorrow with Dr. Juárez. Patient was recently in the hospital on 09/11/2021 and underwent EGD revealing erosive esophagitis and gastritis. Cardiology evaluated the patient post p rocedure secondary to an abnormal EKG that was obtained prior to the patient's EGD. EKG at that time revealed sinus mechanism with nonspecific ST-T wave changes with no evidence of acute ischemia. Patient examined at the bedside in the ER. Patient currently reports abdominal pain. She denies chest pain or pressure. She denies SOB. She states she can walk up a flight of stairs or a few blocks with no difficulty. She is able to lay flat in bed without any dyspnea. She states she is generally pretty active at home. She does report seen a vending machine filler about 3 years ago, Dr. Gonzáles, for cardiac clearance prior to shoulder surgery. She states she had an echocardiogram and a stress test performed which were normal to her knowledge. She does not recall if the vending machine filler told her that time that her EKG had any abnormalities. EKG reveals sinus mechanism with nonspecific ST-T abnormalities, appearing similar to previous EKGs Laboratory data: WBC 6.9. Hemoglobin 12.0. Platelet count 218. Sodium 140. Potassium 3.1. BUN 9. Creatinine 0.50. Current home cardiac medications include amlodipine 5 mg daily REVIEW OF SYSTEMS: At the time of my exam: CONSTITUTIONAL: Denies fever or chills. HEENT: Denies blurred vision, vision changes, or eye pain. Denies hemoptysis CARDIOVASCULAR: Denies chest pain. Denies orthopnea. Denies PND. Denies palpitations RESPIRATORY: Denies shortness of breath. GASTROINTESTINAL: + abdominal pain. Denies nausea or vomiting. HEMATOLOGIC: Denies bleeding disorders. GENITOURINARY: Denies any blood in urine. SKIN: Denies pruitis. Denies rash. PHYSICAL EXAM: VITAL SIGNS: Reviewed. GENERAL: Well-developed in no acute distress. HEENT: Head is normocephalic. Pupils are equal, round. Sclerae anicteric. Mucous membranes of the mouth are moist. Neck supple. No JVD or thyromegaly LUNGS: Respirations even and unlabored. Lungs essentially clear to auscultation bilaterally. HEART: Regular rate and rhythm. S1 and S2 heard. ABDOMEN: Soft. Nondistended. EXTREMITIES: Normal range of motion. No clubbing or cyanosis. Peripheral pulses intact. No lower extremity edema NEUROLOGIC: Awake and alert. Oriented x 3. ASSESSMENT: Cholelithiasis Hypertension Hypothyroidism GERD Anxiety PLAN: Obtain 2-D echo to assess cardiac structure and function Resume home cardiac medications Patient scheduled for robotic cholecystectomy tomorrow with Dr. Juárez If no significant abnormalities noted on echo, we will clear her for surgery from a cardiac standpoint. If echo is abnormal, further cardiac testing will be required prior to giving cardiac clearance Nurse practitioner note has been reviewed by physician. Signing provider agrees with the documented findings, assessment, and plan of care. Past Medical History Past Medical History: No Reported History, Fibromyalgia, Hyperlipidemia, Hy pertension, Osteoarthritis (OA), Thyroid Disorder Additional Past Medical History / Comment(s): daniel's disease, hx "low intestinal pain and gurgling", hx gout, History of Any Multi-Drug Resistant Organisms: None Reported Past Surgical History: Bowel Resection, Section, Orthopedic Surgery, Tonsillectomy Additional Past Surgical History / Comment(s): colonoscopy, bowel resection for obstruction, rotator cuff left shoulder, surgery left wrist after injury Past Anesthesia/Blood Transfusion Reactions: No Reported Reaction Past Psychological History: No Psychological Hx Reported Smoking Status: Never smoker - Past Family History Mother Family Medical History: Cancer Father Family Medical History: Cancer Medications and Allergies Home Medications Medication Instructions Recorded Confirmed Type ALPRAZolam [Xanax] 0.5 mg PO BID PRN 07/16/21 09/18/21 History Albuterol Inhaler [Ventolin Hfa 2 puff INHALATION Q6HR PRN 07/16/21 09/18/21 History Inhaler] HYDROcodone/APAP 10-325MG [[place] 1 tab PO Q6HR PRN 07/16/21 09/18/21 History 10-325] Levothyroxine Sodium [Synthroid] 100 mcg PO DAILY 07/16/21 09/18/21 History amLODIPine [Norvasc] 5 mg PO DAILY 07/16/21 09/18/21 History Omeprazole [PriLOSEC] 40 mg PO DAILY #14 cap 09/17/21 09/18/21 Rx Famotidine [Pepcid] 20 mg PO BID PRN 09/18/21 09/18/21 History Fluticasone Nasal [place] [Flonase 1 - 2 spray EA NOSTRIL DAILY PRN 09/18/21 09/18/21 History Nasal [place]] Allergies Allergy/AdvReac Type Severity Reaction Status Date / Time Sulfa (Sulfonamide Allergy Anaphylaxis Verified 09/18/21 10:21 Antibiotics) Physical Exam Vitals: Vital Signs Temp Pulse Resp BP Pulse Ox 09/18/21 09:02 98.5 F 63 18 152/91 96 09/18/21 08:13 98.1 F 67 18 159/88 98 Intake and Output 09/17/21 09/18/21 09/18/21 22:59 06:59 14:59 Other: Weight 83.915 kg Results 09/18/21 09:02 09/18/21 09:02 Cardiac Enzymes 09/18/21 Range/Units 09:02 AST 25 (14-36) U/L Coagulation 09/18/21 Range/Units 09:02 PT 11.1 (9.0-12.0) sec CBC 09/18/21 Range/Units 09:02 WBC 6.9 (3.8-10.6) k/uL RBC 3.91 (3.80-5.40) m/uL Hgb 12.0 (11.4-16.0) gm/dL Hct 36.5 (34.0-46.0) % Plt Count 518 H (150-450) k/uL Comprehensive Metabolic Panel 09/18/21 Range/Units 09:02 Sodium 140 (137-145) mmol/L Potassium 3.1 L (3.5-5.1) mmol/L Chloride 103 (98-107) mmol/L Carbon Dioxide 29 (22-30) mmol/L BUN 9 (7-17) mg/dL Creatinine 0.50 L (0.52-1.04) mg/dL Glucose 100 H (74-99) mg/dL Calcium 9.7 (8.4-10.2) mg/dL AST 25 (14-36) U/L ALT 15 (4-34) U/L Alkaline Phosphatase 146 H (38-126) U/L Total Protein 7.5 (6.3-8.2) g/dL Albumin 4.1 (3.5-5.0) g/dL Current Medications Generic Name Dose Route Start Last Admin Trade Name Freq PRN Reason Stop Dose Admin Acetaminophen 1,000 mg 09/18/21 12:00 Acetaminophen Tab 500 Mg Tab PO Q6HR CHAMP Amlodipine Besylate 5 mg 09/18/21 11:00 Amlodipine 5 Mg Tab PO DAILY CHAMP Enoxaparin Sodium 30 mg 09/18/21 09:00 Enoxaparin 30 Mg/0.3 Ml Syringe SQ DAILY CHAMP Hydromorphone HCl 1 mg 09/18/21 09:14 Hydromorphone 1 Mg/Ml 1 Ml Syringe IVP Q3HR PRN Moderate to Severe Pain Potassium Chloride/Dextrose/Sod Cl 1,000 mls @ 100 mls/hr 09/18/21 09:30 D5%-Ns-Kcl 20 Meq/L Iv Solution IV .Q10H CHAMP Sodium Chloride 1,000 mls @ 120 mls/hr 09/18/21 09:00 09/18/21 09:11 Saline 0.9% IV 120 mls/hr .Q8H20M CHAMP Administration Naloxone HCl 0.2 mg 09/18/21 08:59 Naloxone 0.4 Mg/Ml 1 Ml Vial IV Q2M PRN Opioid Reversal Pantoprazole Sodium 40 mg 09/18/21 09:00 09/18/21 09:11 Pantoprazole 40 Mg/10 Ml Vial IV 40 mg DAILY CHAMP Administration Intake and Output 09/17/21 09/18/21 09/18/21 22:59 06:59 14:59 Other: Weight 83.915 kg Patient Weight 09/19/21 06:59 Weight 83.915 kg 09/18/21 09:02 09/18/21 09:02
[2021-09-18] MEDS ORDERED: POTASSIUM CHLORIDE ER 20 MEQ TAB.ER PO STA (11:48)
--- NOTE | 2021-09-18 12:00 | ECHOF ---
Referral Reason:Chest pain, abnormal EKG MEASUREMENTS -------- HEIGHT: 157.5 cm WEIGHT: 83.9 kg BP: 152/91 RVIDd: 3.5 cm (< 3.3) IVSd: 1.0 cm (0.6 - 1.1) LVIDd: 5.2 cm (3.9 - 5.3) LVPWd: 1.3 cm (0.6 - 1.1) IVSs: 1.7 cm LVIDs: 3.2 cm LVPWs: 1.7 cm LAESV Index (A-L): 36.69 ml/m Ao Diam: 2.9 cm (2.0 - 3.7) AV Cusp: 1.8 cm (1.5 - 2.6) LA Diam: 4.3 cm (2.7 - 3.8) MV EXCURSION: 10.955 mm (> 18.000) MV EF SLOPE: 43 mm/s (70 - 150) EPSS: 0.6 cm MV E Tate: 0.97 m/s MV DecT: 255 ms MV A Tate: 1.47 m/s MV E/A Ratio: 0.66 RAP: 5.00 mmHg RVSP: 29.95 mmHg FINDINGS -------- Sinus rhythm. This was a technically adequate study. The left ventricular size is normal. There is mild concentric left ventricular hypertrophy. Overa ll left ventricular systolic function is normal with, an EF between 55 - 60 %. The diastolic fillin g pattern is normal for the age of the patient 16.62. The right ventricle is mildly enlarged. LA is moderately dilated 34-39 ml/m2 The right atrial size is normal. Interatrial and interventricular septum intact. The aortic valve is trileaflet and appears structurally normal. Trace amount of aortic regurgitatio n. There is no evidence of aortic stenosis. Mild mitral regurgitation is present. Mild tricuspid regurgitation present. There is no evidence of pulmonary hypertension. The right v entricular systolic pressure, as measured by Doppler, is 29.95mmHg. There is no pulmonic regurgitation present. The aortic root size is normal. IVC Not well visulized. There is no pericardial effusion. CONCLUSIONS -------- 1. The left ventricular size is normal. 2. There is mild concentric left ventricular hypertrophy. 3. Overall left ventricular systolic function is normal with, an EF between 55 - 60 %. 4. The diastolic filling pattern is normal for the age of the patient 16.62 5. The right ventricle is mildly enlarged. 6. LA is moderately dilated 34-39 ml/m2 7. Trace amount of aortic regurgitation. 8. Mild mitral regurgitation is present. 9. Mild tricuspid regurgitation present. DENTAL RESIDENT: Ginette Silveira RDCS
[2021-09-18] MEDS: ACETAMINOPHEN TAB 500 MG TAB PO SCH ×2 (12:25→17:46)
[2021-09-18] MEDS: amLODIPine 5 MG TAB PO SCH (12:25)
[2021-09-18] MEDS: HYDROmorphone 1 MG/ML 1 ML SYRINGE IVP PRN ×4 (12:26→21:47)
[2021-09-18] MEDS: PIPERACILLIN-TAZOBACTAM 3.375 GM in SODIUM CHLORIDE 0.9% 100 ML IVPB SCH ×2 (12:35→20:01)
--- NOTE | 2021-09-18 12:59 | US ---
EXAMINATION TYPE: US gallbladder DATE OF EXAM: 09/18/2021 COMPARISON: 09/09/2021 CLINICAL HISTORY: 65-year-old female gallstones. TECHNIQUE: Multiple sonographic images of the right upper quadrant are obtained. FINDINGS: EXAM MEASUREMENTS: Liver Length: 15.3 cm Gallbladder Wall: 0.2 cm CBD: 0.4 cm Right Kidney: 11.4x5.5x4.6 cm Pancreas: Limited visualization of the pancreatic head and tail due to shadowing from bowel gas. Vis ualized pancreatic body shows no gross abnormal. Liver: Mild increased echogenicity. No focal lesion seen. Gallbladder: Multiple mobile stones 1.1cm. The gallbladder itself is atrophic measuring 4.7 cm wide. No wall thickening or surrounding fluid. Evidence for sonographic Blanchard's sign: No CBD: wnl Right Kidney: No hydronephrosis. IMPRESSION: 1. Cholelithiasis with multiple mobile stones measuring up to 1.1 cm. Mildly hydropic gallbladder sherry nge may be due to fasting state. Clinically correlate. No wall thickening or sonographic Blanchard sign to indicate acute cholecystitis at this time. If right upper quadrant pain progresses, HIDA scan can be performed. 2. No biliary ductal dilatation. 3. At least mild hepatic steatosis.
[2021-09-18] MEDS: D5-0.9% NACL WITH KCL 20 MEQ/L 1,000 ML IV SCH (14:50)
[2021-09-18] MEDS: ENOXAPARIN 30 MG/0.3 ML SYRINGE SQ SCH (15:15)
[2021-09-18] MEDS: IOPAMIDOL CONTRAST (ORAL USE) VIAL PO PRN ×2 (20:00→21:04)
--- NOTE | 2021-09-18 22:15 | CT ---
EXAMINATION TYPE: CT abdomen pelvis w con DATE OF EXAM: 09/18/2021 COMPARISON: None HISTORY: RUQ pain CT DLP: 1297.2 mGycm Automated exposure control for dose reduction was used. CONTRAST: Performed with IV Contrast, patient injected with 100 mL of Isovue 370. The lung bases are clear of consolidation. There is no pleural effusion. Heart size is normal. There is no pericardial effusion. Liver is intact. The bile ducts are not dilated. Gallbladder is dilated and measures 5 cm in diameter . Spleen is intact. Stomach is intact. There is no pancreatic mass. There is no adrenal mass. Kidneys show normal size and contour. Delayed images show normal renal excr etion. There is no hydronephrosis. Ureters are not dilated. There is no retroperitoneal adenopathy. B ladder distends smoothly. There is no inguinal hernia. There is no free fluid in the pelvis. Uterus i s anteverted. There is no evidence of a pelvic mass. The lumbar vertebra are intact. There is no compression fracture. There is vacuum disc and disc space narrowing at L3-4 L4-5. Bony pelvis is intact. The hip joints are intact. The terminal ileum appears normal. Appendix not clearly seen. No sign of thickened appendix. IMPRESSION: Dilated gallbladder suggestive of some gallbladder dysfunction. No dilated ducts. Cholecystitis is po ssible. Appendix not seen. No evidence of renal stone or obstruction.
[2021-09-19] MEDS: ACETAMINOPHEN TAB 500 MG TAB PO SCH ×3 (00:02→12:07)
[2021-09-19] MEDS: SODIUM CHLORIDE 0.9% 1,000 ML IV SCH ×2 (03:03→08:48)
[2021-09-19] MEDS: D5-0.9% NACL WITH KCL 20 MEQ/L 1,000 ML IV SCH ×2 (03:11→04:02)
[2021-09-19] MEDS: HYDROmorphone 1 MG/ML 1 ML SYRINGE IVP PRN ×4 (04:01→20:36)
[2021-09-19] MEDS: PIPERACILLIN-TAZOBACTAM 3.375 GM in SODIUM CHLORIDE 0.9% 100 ML IVPB SCH ×3 (04:02→19:39)
[2021-09-19] MEDS ORDERED: ALPRAZolam 0.5 MG TAB PO PRN ×2 (08:05→12:28)
[2021-09-19] MEDS: PANTOPRAZOLE 40 MG/10 ML VIAL IV SCH (08:42)
[2021-09-19] MEDS: GABAPENTIN 300 MG CAP PO SCH ×3 (08:42→20:36)
[2021-09-19] MEDS: amLODIPine 5 MG TAB PO SCH (08:42)
[2021-09-19] MEDS: ENOXAPARIN 30 MG/0.3 ML SYRINGE SQ SCH (08:42)
[2021-09-19 10:35] LABS: Basophils % (A) 1 %; Eosinophils # (A) 0.2 k/uL (0-0.7); Eosinophils % (A) 6 %; HCT 40.2 % (34.0-46.0); HGB 13.1 gm/dL (11.4-16.0); Lymphocytes # (A) 1.7 k/uL (1.0-4.8); Lymphocytes % (A) 43 %; MCH 31.1 pg (25.0-35.0); MCHC 32.7 g/dL (31.0-37.0); MCV 95.1 fL (80.0-100.0); Mean Platelet Volume 6.5; Monocytes # (A) 0.2 k/uL (0-1.0); Monocytes % (A) 5 %; Neutrophils # (A) 1.7 k/uL (1.3-7.7); Neutrophils % (A) 43 %; Platelet Count 533 k/uL (150-450); RBC 4.22 m/uL (3.80-5.40); RDW 12.9 % (11.5-15.5); WBC 3.9 k/uL (3.8-10.6)
[2021-09-19 10:52] LABS: ALT 15 U/L (4-34); AST 31 U/L (14-36); African American GFR (CKD) >90 (>60 ml/min/1.73 sqM); Albumin 4.1 g/dL (3.5-5.0); Albumin/Globulin Ratio 1.1; Alkaline Phosphatase 136 U/L (38-126); Amylase 62 U/L (30-110); Anion Gap 7 mmol/L; Blood Urea Nitrogen 4 mg/dL (7-17); Calcium 9.8 mg/dL (8.4-10.2); Carbon Dioxide 31 mmol/L (22-30); Chloride 104 mmol/L (98-107); Globulin 3.6 g/dL; Glucose 109 mg/dL (74-99); Lipase 75 U/L (23-300); Non-African American GFR(CKD) >90 (>60 ml/min/1.73 sqM); Potassium 3.4 mmol/L (3.5-5.1); Sodium 142 mmol/L (137-145); Total Bilirubin 0.5 mg/dL (0.2-1.3); Total Protein 7.7 g/dL (6.3-8.2)
[2021-09-19] MEDS ORDERED: DEXAMETHASONE SOD PHOSPHATE 4 MG/ML 1 ML VIAL IV ONE (12:28)
[2021-09-19] MEDS ORDERED: LACTATED RINGERS 1,000 ML IV SCH (12:28)
[2021-09-19] MEDS ORDERED: ALBUTEROL HFA INHALER INHALATION PRN (12:28)
[2021-09-19] MEDS ORDERED: ONDANSETRON 4 MG/2 ML VIAL IVP ONE (12:28)
[2021-09-19] MEDS ORDERED: LIDOCAINE 1% (10MG/ML) FOR IV START INTRADERMA PRN (12:28)
[2021-09-19] MEDS ORDERED: IV FLUID CONTINUATION 750 ML IV ONE (12:40)
[2021-09-19] MEDS ORDERED: GLYCOPYRROLATE 0.2 MG/ML 2 ML VIAL ONE (14:04)
[2021-09-19] MEDS ORDERED: PROPOFOL 10 MG/ML 20 ML VIAL IV ONE (14:04)
[2021-09-19] MEDS ORDERED: SUCCINYLCHOLINE CHLORIDE 100 MG/5 ML SYR IV ONE (14:04)
[2021-09-19] MEDS ORDERED: NEOSTIGMINE 1 MG/ML 10 ML VIAL ONE (14:04)
[2021-09-19] MEDS ORDERED: fentaNYL (PF) 50 MCG/ML 2 ML AMP ONE (14:04)
[2021-09-19] MEDS ORDERED: ePHEDrine 50 MG/ML 1 ML AMP ONE (14:04)
[2021-09-19] MEDS ORDERED: ROCURONIUM 10 MG/ML (5 ML VIAL) IV ONE (14:04)
[2021-09-19] MEDS ORDERED: LIDOCAINE 1% INJ 10MG/ML (20 ML MDV) ONE (14:04)
[2021-09-19] MEDS ORDERED: MIDAZOLAM 2 MG/2 ML VIAL ONE (14:04)
[2021-09-19] MEDS ORDERED: BUPIVACAIN-EPI 0.25%-1:200,000 30 ML VIAL SQ ONE (14:33)
[2021-09-19] MEDS ORDERED: LACTATED RINGERS 1,000 ML IV ONE (14:38)
[2021-09-19] MEDS: HYDROmorphone 0.5 MG/0.5 ML SYRINGE IVP PRN ×2 (15:57→16:05)
[2021-09-19] MEDS ORDERED: METOCLOPRAMIDE 5 MG/ML 2 ML VIAL IVP PRN (16:00)
--- NOTE | 2021-09-19 16:11 | P.OP ---
Date of Procedure: 09/19/21 Description of Procedure: SURGEON: LAM DAVIS MD PREOPERATIVE DIAGNOSES: 1. Acute cholecystitis with right upper quadrant abdominal pain 2. Hypertensive heart disease 3. Gastroesophageal reflux disease 4. Hypothyroidism 5. Generalized anxiety disorder 6. Obesity due to excess calories, BMI 33.8 7. Asthma 8. Fibromyalgia 9. Hussein's disease 10. Personal history of bowel obstruction with bowel resection POSTOPERATIVE DIAGNOSES: 1. Acute cholecystitis with right upper quadrant abdominal pain 2. Hypertensive heart disease 3. Gastroesophageal reflux disease 4. Hypothyroidism 5. Generalized anxiety disorder 6. Obesity due to excess calories, BMI 33.8 7. Asthma 8. Fibromyalgia 9. Hussein's disease 10. Personal history of bowel obstruction with bowel resection 11. Severe intra-abdominal peritoneal adhesions including pericholecystic adhesions OPERATION: 1. Robotic-assisted da Rafa Xi laparoscopic lysis of adhesions over 1 hour 2. Robotic-assisted da Rafa Xi laparoscopic cholecystectomy, multiport with FIREFLY ESTIMATED BLOOD LOSS: 5 mL. SPECIMENS REMOVED: Gallbladder. COMPLICATIONS: None. OPERATIVE FINDINGS: 1. Moderate scarring over entire gallbladder with peritoneal adhesions, pericholecystic with features of chronic cholecystitis 2. Multiple gallstones over 6 identified at least 8 mm in size 3. Severe pelvic including midline and epigastric adhesions requiring over 1 hour extensive lysis of adhesions INDICATIONS: The patient is a 65-year-old female who presents with acute cholecystitis and symptomatic gallstones. Robotic assisted laparoscopic approach was described. Benefits and risks of the procedure including but not li mited to bleeding, infection, injury to the biliary tree was described. Informed consent was obtained. DESCRIPTION OF PROCEDURE: Patient was brought to the operating room, placed in supine position. After general induction, the abdomen had been prepped and draped in standard sterile fashion. The robotic da Rafa XI system was primed. After a timeout protocol was performed, the patient had been prepped and draped in standard sterile fashion. The patient was injected with indocyanine green. A 5 mm 0 degrees laparoscopic trocar entry was performed along the left upper quadrant. The abdomen insufflated to 15 mmHg pressure which was tolerated well. Diagnostic laparoscopy demonstrated no injury to bowel viscera or mesentery. The liver surface was unremarkable. Next, two 8 mm robotic ports were placed along the right upper abdomen. The camera 8-mm port was maintained along the epigastrium. Another 8 mm port was placed along the left upper abdominal wall after exchanging the 5 mm port. Please note that the ports were placed at least 10 to 15 cm away from the target anatomy of the gallbladder. The robot was docked along the left lateral abdomen. The patient was repositioned in reverse Trendelenburg position. Using a grasper for arm 3, a grasper for arm 4, including hook cautery for arm 1, the robotic system was docked and primed as described. Additional trochars placed along the left lateral abdominal wall for extensive lysis of adhesions. Instruments were interchanged by the health center assistant including hook cautery, Bovie cautery and clip appliers. I had sat at the console. Severe intra-abdominal adhesions involving the pelvis midline and epigastrium was identified. Extensive lysis of adhesions using cautery as well as vessel loop was used to dissect the peritoneal adhesions with exposure of the gallbladder. Over 1 hour lysis of adhesions was performed. The gallbladder was scarred with peritoneal adhesions. Lysis of adhesions was performed to free the gallbladder from the surrounding tissues. Next attention was brought to the infundibulum and cystic structures. The infundibulum and cystic duct were dissected free from surrounding tissues. The cystic duct was isolated. FIREFLY was used to identify the cystic artery and cystic structures. A critical view of safety was obtained. Large PLASTIC clips were used throughout the entire case. Using a clip delivery nurse, 2 clips were placed at the junction of the infundibulum and cystic duct. The cystic duct was divided between clips. Next, the cystic artery was similarly clipped and cauterized. Electro-Bovie cautery was used to remove the gallbladder from the hepatic fossa. Hemostasis was checked and found to be adequate. The robot was undocked. I re-scrubbed into the case. Using a 10 mm Endo Catch bag via the left upper quadrant incision, the specimen was removed from the abdominal cavity. All pneumoperitoneum instruments were evacuated from the abdominal cavity. The incisions were reapproximated using 4-0 Monocryl in an interrupted subcuticular fashion. The left lateral incision was oversewn using 0 Vicryl and Blue [place]. Please note along the trocar sites, local anesthetic was placed as a field block prior to insertion of all instruments. Liquid glue was applied to the skin. At the end of the procedure needle, sponge, and instrument count had been verified correct by the surgical dressing maker. The patient was transferred to postanesthesia care unit in stable condition. Intraoperative films were shared with the patient's family.
[2021-09-19] MEDS: ACETAMINOPHEN TAB 325 MG TAB PO SCH ×2 (17:13→23:19)
[2021-09-19] MEDS: PANTOPRAZOLE 40 MG TABLET PO SCH (17:13)
[2021-09-19] MEDS: 0.9% NACL WITH KCL 40 MEQ/L 1,000 ML IV SCH (17:13)
[2021-09-19] MEDS: ONDANSETRON 4 MG/2 ML VIAL IVP SCH ×2 (17:15→23:19)
[2021-09-19] MEDS: KETOROLAC 30 MG/ML 1 ML VIAL IVP SCH ×2 (17:15→23:18)
[2021-09-19] MEDS: LEVOTHYROXINE 100 MCG TAB PO SCH (17:16)
[2021-09-19] MEDS: HYDROcodone/APAP 10-325MG 1 EACH TAB PO PRN (19:38)
[2021-09-20] MEDS: PIPERACILLIN-TAZOBACTAM 3.375 GM in SODIUM CHLORIDE 0.9% 100 ML IVPB SCH ×2 (03:34→12:28)
[2021-09-20] MEDS: ONDANSETRON 4 MG/2 ML VIAL IVP SCH ×2 (05:21→12:27)
[2021-09-20] MEDS: ACETAMINOPHEN TAB 325 MG TAB PO SCH ×2 (05:21→12:26)
[2021-09-20] MEDS: KETOROLAC 30 MG/ML 1 ML VIAL IVP SCH ×2 (05:21→12:27)
[2021-09-20] MEDS: HYDROmorphone 1 MG/ML 1 ML SYRINGE IVP PRN (05:22)
[2021-09-20] MEDS: LEVOTHYROXINE 100 MCG TAB PO SCH (05:22)
[2021-09-20] MEDS: 0.9% NACL WITH KCL 40 MEQ/L 1,000 ML IV SCH (05:22)
[2021-09-20 06:15] LABS: Basophils % (A) 0 %; Eosinophils % (A) 0 %; HCT 37.1 % (34.0-46.0); HGB 11.9 gm/dL (11.4-16.0); Lymphocytes # (A) 1.5 k/uL (1.0-4.8); Lymphocytes % (A) 16 %; MCH 30.5 pg (25.0-35.0); MCV 95.1 fL (80.0-100.0); Mean Platelet Volume 6.5; Monocytes # (A) 0.4 k/uL (0-1.0); Monocytes % (A) 4 %; Neutrophils # (A) 7.1 k/uL (1.3-7.7); Neutrophils % (A) 79 %; Platelet Count 505 k/uL (150-450); WBC 9.1 k/uL (3.8-10.6)
[2021-09-20 06:36] LABS: ALT 33 U/L (4-34); AST 51 U/L (14-36); African American GFR (CKD) >90 (>60 ml/min/1.73 sqM); Albumin 3.9 g/dL (3.5-5.0); Albumin/Globulin Ratio 1.3; Alkaline Phosphatase 122 U/L (38-126); Anion Gap 9 mmol/L; Blood Urea Nitrogen 8 mg/dL (7-17); Calcium 9.4 mg/dL (8.4-10.2); Carbon Dioxide 28 mmol/L (22-30); Chloride 103 mmol/L (98-107); Globulin 3.1 g/dL; Glucose 115 mg/dL (74-99); Non-African American GFR(CKD) >90 (>60 ml/min/1.73 sqM); Potassium 3.3 mmol/L (3.5-5.1); Sodium 140 mmol/L (137-145); Total Bilirubin 0.4 mg/dL (0.2-1.3)
[2021-09-20 07:54] VITALS: BP 156/77; RESP 18; TEMP 98.7
[2021-09-20] MEDS: PANTOPRAZOLE 40 MG TABLET PO SCH (08:02)
[2021-09-20] MEDS: amLODIPine 5 MG TAB PO SCH (08:03)
[2021-09-20] MEDS: HYDROcodone/APAP 10-325MG 1 EACH TAB PO PRN (08:03)
[2021-09-20] MEDS: GABAPENTIN 300 MG CAP PO SCH (08:03)
[2021-09-20] MEDS: ENOXAPARIN 30 MG/0.3 ML SYRINGE SQ SCH (08:04)
[2021-09-20] MEDS ORDERED: POTASSIUM CHLORIDE ER 20 MEQ TAB.ER PO STA (08:37)
[2021-09-20 11:52] VITALS: PULSE 78
--- NOTE | 2021-09-20 13:26 | P.DS ---
Providers Date of admission: 09/20/21 11:00 Expected date of discharge: 09/20/21 Attending physician: Mary Jane Juárez Primary care physician: Corey Castro Hospital Course: Discharge diagnosis 1. Acute cholecystitis with right upper quadrant abdominal pain 2. Hypertensive heart disease 3. Gastroesophageal reflux disease 4. Hypothyroidism 5. Generalized anxiety disorder 6. Obesity due to excess calories, BMI 33.8 7. Asthma 8. Fibromyalgia 9. Hussein's disease 10. Personal history of bowel obstruction with bowel resection 11. Severe intra-abdominal peritoneal adhesions including pericholecystic adhesions 12. Mildly elevated AST on discharge Hospital course This is a 65-year-old female with known history of gallstones. She has had intermittent episodes of right upper quadrant abdominal pain for about 4 months. Patient had an abdominal ultrasound done on 09/04 2021 outpatient that did show multiple mobile gallstones measuring up to 1.8 cm. No biliary ductal dilation or other specific abnormality seen. Patient reports that her abdominal pain became very severe over the last couple of days before she came into the ER for further evaluation. Patient reports that her pain is located in the right upper quadrant radiates to her back. She has been having intermittent fevers over the last couple weeks with nausea and episodes of vomiting. Her symptoms are worse after eating. Patient is status post Robotic-assisted da Rafa Xi laparoscopic lysis of adhesions and Robotic-assisted da Rafa Xi laparoscopic cholecystectomy. Patient tolerated surgery well. Her pain is controlled. She is tolerating diet. She's having flatus. She is up and ambulating. She is stable for discharge. Physician Executive Steward note has been reviewed by physician. Signing provider agrees with the documented findings, assessment, and plan of care. Patient Condition at Discharge: Stable Plan - Discharge Summary Discharge Rx Participant: No New Discharge Prescriptions: Continue ALPRAZolam [Xanax] 0.5 mg PO BID PRN PRN Reason: Anxiety HYDROcodone/APAP 10-325MG [[place] 10-325] 1 tab PO Q6HR PRN PRN Reason: Pain Albuterol Inhaler [Ventolin Hfa Inhaler] 2 puff INHALATION Q6HR PRN PRN Reason: sob Omeprazole [PriLOSEC] 40 mg PO DAILY #14 cap amLODIPine [Norvasc] 5 mg PO DAILY Levothyroxine Sodium [Synthroid] 100 mcg PO DAILY Fluticasone Nasal [place] [Flonase Nasal [place]] 1 - 2 spray EA NOSTRIL DAILY PRN PRN Reason: Congestion Famotidine [Pepcid] 20 mg PO BID PRN PRN Reason: gerd Discharge Medication List ALPRAZolam [Xanax] 0.5 mg PO BID PRN 07/16/21 [History] Albuterol Inhaler [Ventolin Hfa Inhaler] 2 puff INHALATION Q6HR PRN 07/16/21 [History] HYDROcodone/APAP 10-325MG [[place] 10-325] 1 tab PO Q6HR PRN 07/16/21 [History] Levothyroxine Sodium [Synthroid] 100 mcg PO DAILY 07/16/21 [History] amLODIPine [Norvasc] 5 mg PO DAILY 07/16/21 [History] Omeprazole [PriLOSEC] 40 mg PO DAILY #14 cap 09/17/21 [Rx] Famotidine [Pepcid] 20 mg PO BID PRN 09/18/21 [History] Fluticasone Nasal [place] [Flonase Nasal [place]] 1 - 2 spray EA NOSTRIL DAILY PRN 09/18/21 [History] Follow up Appointment(s)/Referral(s): Corey Castro MD [Primary Care Provider] - 1-2 days Rebecca Plascencia MD [STAFF PHYSICIAN] - 1 Week Mary Jane Juárez MD [STAFF PHYSICIAN] - 09/24/21 Activity/Diet/Wound Care/Special Instructions: Wear abdominal binder at all times for comfort. No lifting over 4 pounds in 4 weeks You May shower. No bath tub soaks for two weeks Use ibuprofen OTC scheduled for the next 24-48 hours for best pain relief. Use ice along incisions for the today to prevent swelling. Continue low-fat diet Patient's follow-up appointment with Dr. Juárez can be set up as a virtual appointment
--- NOTE | 2021-09-20 13:29 | P.GSHP ---
History of Present Illness H&P Date: 09/18/21 CHIEF COMPLAINT: Abdominal pain HISTORY OF PRESENT ILLNESS: This is a 65-year-old female with known history of gallstones. She has had intermittent episodes of right upper quadrant abdominal pain for about 4 months. Patient had an abdominal ultrasound done on 09/04 2021 outpatient that did show multiple mobile gallstones measuring up to 1.8 cm. No biliary ductal dilation or other specific abnormality seen. Patient reports that her abdominal pain became very severe over the last couple of days before she came into the ER for further evaluation. Patient reports that her pain is located in the right upper quadrant radiates to her back. She has been having intermittent fevers over the last couple weeks with nausea and episodes of vomiting. Her symptoms are worse after eating. She is currently afebrile and white count is normal. Patient denies any vomiting changes or urinary symptoms. Patient does report prior abdominal surgery of bowel resection for bowel obstruction and prior . PAST MEDICAL HISTORY: See list. PAST SURGICAL HISTORY: See list. MEDICATIONS: See list. ALLERGIES: See list. SOCIAL HISTORY: No illicit drug use. REVIEW OF SYSTEMS: CONSTITUTIONAL: Denies fever or chills. HEENT: Denies blurred vision, vision changes, or eye pain. Denies hemoptysis ENDOCRINE: Denies heat or cold intolerance. CARDIOVASCULAR: Denies chest pain or pressure. RESPIRATORY: No shortness of breath. GASTROINTESTINAL: Please refer to HPI NEURO: Denies history of seizures. PSYCH: No depression or suicidal ideation HEMATOLOGIC: Denies bleeding disorders. LYMPHATIC: The patient denies any lumps and bumps around the neck. GENITOURINARY: Denies any blood in urine or increased urinary frequency. MUSCULOSKELETAL: Denies myalgias. Denies joint swelling. Denies decreased range of motion beyond patients baseline. SKIN: Denies pruitis. Denies rash. PHYSICAL EXAM: VITAL SIGNS: Reviewed GENERAL: Well-developed in no acute distress. HEENT: No sclera icterus. Extraocular movements grossly intact. Moist buccal mucosa. Head is atraumatic, normocephalic. Hears conversational speech. No nasal drainage. NECK: Supple without lymphadenopathy. CHEST: Non-labored respirations and equal bilateral excursions. CARDIOVASCULAR: Palpable 2+ radial pulses. ABDOMEN: Soft. Nondistended. Tenderness to palpation of the right upper quadrant MUSCULOSKELETAL: No clubbing or cyanosis. NEUROLOGIC: No focal or lateralizing signs. Cranial nerves II through XII trinh ssly intact. PSYCH: Appropriate affect. Alert and oriented to person, place and time. SKIN: Well perfused. Good skin turgor. LABORATORY DATA: WBC is 6.9 Hgb 12.0 platelets 518 INR 1.0 Sodium 140 potassium 3.1 CR 0.50 AST and ALT normal alk phos 146 IMAGING: ASSESSMENT: 1. Acute cholecystitis 2. Symptomatic cholelithiasis 3. Right upper quadrant abdominal pain 4. Hypokalemia 5. History of hypertension 6. Hypothyroidism PLAN: -Patient scheduled for robotic cholecystectomy tomorrow, 09/19/[address] Juárez -Consult cardiology for cardiac risk assessment -Keep patient nothing by mouth except for ice chips, popsicles and medications -Continue pain medication as needed -Low potassium being replaced -Add IV antibiotics -Continue IV fluids Physician Acidizer Helper note has been reviewed by physician. Signing provider agrees with the documented findings, assessment, and plan of care. Past Medical History Past Medical History: No Reported History, Fibromyalgia, Hyperlipidemia, Hypertension, Osteoarthritis (OA), Thyroid Disorder Additional Past Medical History / Comment(s): daniel's disease, hx "low intesti nal pain and gurgling", hx gout, History of Any Multi-Drug Resistant Organisms: None Reported Past Surgical History: Bowel Resection, Section, Orthopedic Surgery, Tonsillectomy Additional Past Surgical History / Comment(s): colonoscopy, bowel resection for obstruction, rotator cuff left shoulder, surgery left wrist after injury Past Anesthesia/Blood Transfusion Reactions: No Reported Reaction Past Psychological History: No Psychological Hx Reported Smoking Status: Never smoker - Past Family History Mother Family Medical History: Cancer Father Family Medical History: Cancer Medications and Allergies Home Medications Medication Instructions Recorded Confirmed Type ALPRAZolam [Xanax] 0.5 mg PO BID PRN 07/16/21 09/18/21 History Albuterol Inhaler [Ventolin Hfa 2 puff INHALATION Q6HR PRN 07/16/21 09/18/21 History Inhaler] HYDROcodone/APAP 10-325MG [[place] 1 tab PO Q6HR PRN 07/16/21 09/18/21 History 10-325] Levothyroxine Sodium [Synthroid] 100 mcg PO DAILY 07/16/21 09/18/21 History amLODIPine [Norvasc] 5 mg PO DAILY 07/16/21 09/18/21 History Omeprazole [PriLOSEC] 40 mg PO DAILY #14 cap 09/17/21 09/18/21 Rx Famotidine [Pepcid] 20 mg PO BID PRN 09/18/21 09/18/21 History Fluticasone Nasal [place] [Flonase 1 - 2 spray EA NOSTRIL DAILY PRN 09/18/21 09/18/21 History Nasal [place]] Allergies Allergy/AdvReac Type Severity Reaction Status Date / Time Sulfa (Sulfonamide Allergy Anaphylaxis Verified 09/19/21 12:31 Antibiotics) Surgical - Exam Vital Signs Temp Pulse Resp BP Pulse Ox 98.1 F 67 18 159/88 98 09/18/21 08:13 09/18/21 08:13 09/18/21 08:13 09/18/21 08:13 09/18/21 08:13 Results - Labs 09/20/21 05:39 09/20/21 05:39 Abnormal Lab Results - Last 24 Hours (Table) 09/20/21 09/20/21 Range/Units 05:39 05:39 Plt Count 505 H (150-450) k/uL Potassium 3.3 L (3.5-5.1) mmol/L Glucose 115 H (74-99) mg/dL AST 51 H (14-36) U/L Diabetes panel 09/20/21 Range/Units 05:39 Sodium 140 (137-145) mmol/L Potassium 3.3 L (3.5-5.1) mmol/L Chloride 103 (98-107) mmol/L Carbon Dioxide 28 (22-30) mmol/L BUN 8 (7-17) mg/dL Creatinine 0.68 (0.52-1.04) mg/dL Glucose 115 H (74-99) mg/dL Calcium 9.4 (8.4-10.2) mg/dL AST 51 H (14-36) U/L ALT 33 (4-34) U/L Alkaline Phosphatase 122 (38-126) U/L Total Protein 7.0 (6.3-8.2) g/dL Albumin 3.9 (3.5-5.0) g/dL Calcium panel 09/20/21 Range/Units 05:39 Calcium 9.4 (8.4-10.2) mg/dL Albumin 3.9 (3.5-5.0) g/dL Pituitary panel 09/20/21 Range/Units 05:39 Sodium 140 (137-145) mmol/L Potassium 3.3 L (3.5-5.1) mmol/L Chloride 103 (98-107) mmol/L Carbon Dioxide 28 (22-30) mmol/L BUN 8 (7-17) mg/dL Creatinine 0.68 (0.52-1.04) mg/dL Glucose 115 H (74-99) mg/dL Calcium 9.4 (8.4-10.2) mg/dL Adrenal panel 09/20/21 Range/Units 05:39 Sodium 140 (137-145) mmol/L Potassium 3.3 L (3.5-5.1) mmol/L Chloride 103 (98-107) mmol/L Carbon Dioxide 28 (22-30) mmol/L BUN 8 (7-17) mg/dL Creatinine 0.68 (0.52-1.04) mg/dL Glucose 115 H (74-99) mg/dL Calcium 9.4 (8.4-10.2) mg/dL Total Bilirubin 0.4 (0.2-1.3) mg/dL AST 51 H (14-36) U/L ALT 33 (4-34) U/L Alkaline Phosphatase 122 (38-126) U/L Total Protein 7.0 (6.3-8.2) g/dL Albumin 3.9 (3.5-5.0) g/dL
== END 2021-09-20 13:57 | disposition home or self-care (01) | DRG 418 ==
LOC: OR 08:03 → 6PED 09:08 → 6NMEDSUR 10:27 → OBSVTOIN 09-20 11:00
PROVIDERS: ADMIT Surgery Plastic and Reconstructive Surgery; ATTEND Surgery Plastic and Reconstructive Surgery
PROC: 0DNW4ZZ Release Peritoneum, Percutaneous Endoscopic Approach (ICD-10-PCS; 2021-09-19)
PROC: 8E0W4CZ Robotic Assisted Procedure of Trunk Region, Percutaneous Endoscopic Approach (ICD-10-PCS; 2021-09-19)
PROC: 0FT44ZZ Resection of Gallbladder, Percutaneous Endoscopic Approach (ICD-10-PCS; principal; 2021-09-19 17:10)
DX: K80.12 Calculus of gallbladder with acute and chronic cholecystitis without obstruction (principal); M31.30 Wegener's granulomatosis without renal involvement; E03.9 Hypothyroidism, unspecified; E66.09 Other obesity due to excess calories; Z68.33 Body mass index [BMI] 33.0-33.9, adult; E87.6 Hypokalemia; F41.1 Generalized anxiety disorder; I11.9 Hypertensive heart disease without heart failure; J45.909 Unspecified asthma, uncomplicated; K21.9 Gastro-esophageal reflux disease without esophagitis; K66.0 Peritoneal adhesions (postprocedural) (postinfection); Z20.822 Contact with and (suspected) exposure to COVID-19; K82.8 Other specified diseases of gallbladder; M79.7 Fibromyalgia; Z79.890 Hormone replacement therapy; Z79.899 Other long term (current) drug therapy; Z88.2 Allergy status to sulfonamides; Z90.49 Acquired absence of other specified parts of digestive tract
CPT/HCPCS: 74177; 76705; 80053; 82150; 83690; 83735; 85025; 85610; 87635; 88304; 93005; 93306; 96374; 99284

== ENCOUNTER → 2022-03-12 | Outpatient (CLI) | payer MEDICARE ==
--- NOTE | 2022-03-13 14:38 | MM ---
Reason for exam: screening (asymptomatic). Last mammogram was performed 21 years and 8 months ago. History: Patient is postmenopausal. Family history of breast cancer. Physical Findings: A clinical breast exam by your physician is recommended on an annual basis and results should be correlated with mammographic findings. MG 3D Screening Mammo W/Cad Bilateral CC and MLO view(s) were taken. No prior studies available for comparison. Benign appearing bilateral calcifications. ASSESSMENT: Benign, BI-RAD 2 RECOMMENDATION: Routine screening mammogram of both breasts in 1 year.
== END | disposition home or self-care (01) ==
LOC: RADMAMWWP 10:20
PROVIDERS: ATTEND Family Medicine
DX: Z12.31 Encounter for screening mammogram for malignant neoplasm of breast (principal); Z78.0 Asymptomatic menopausal state; Z80.3 Family history of malignant neoplasm of breast
CPT/HCPCS: 77063; 77067

== ENCOUNTER 2022-11-10 11:13 | Emergency (ER) | payer MEDICARE ==
[2022-11-10 11:22] VITALS: TEMP 100
--- NOTE | 2022-11-10 11:22 | ED ---
General Adult HPI - General Source: patient, RN notes reviewed Mode of arrival: ambulatory Limitations: no limitations <Vargas Villafuerte - Last Filed: 11/10/22 11:21> <Eladio Galloway - Last Filed: 11/10/22 13:53> - General Stated complaint: JOSE Time Seen by Provider: 11/10/22 11:21 - History of Present Illness Initial comments: 67-year-old female presents emergency Department with chief complaint ofshortness of breath. Patient was sent over from Dr. Castro's office for further evaluation. Patient has been urgent care and PCPs office multiple times with increasing dyspnea. Patient states that she's been multiple rounds of advised, steroids with no real improvement. Patient states that she's been doing breathing treatments at home.patient denies history of asthma or COPD. (Vargas Villafuerte) Dictation was produced using [employer] dictation software. please excuse any grammatical, word or spelling errors. Chief Complaint: 67-year-old female sent in from primary care physician's office for persistent respiratory symptoms History of Present Illness: 67-year-old female she is been having symptoms of cough and shortness of breath for the last 1-2 weeks. Over the course of time she had needed course of antibiotics and steroids and multiple medications. She went to follow-up with her primary care physician's office today and told to come to the emergency room for further treatment. Denies any history of cardiac disease. No leg swelling. Symptoms are worse with lying flat The ROS documented in this emergency department record has been reviewed and confirmed by me. Those systems with pertinent positive or negative responses have been documented in the HPI. All other systems are other negative and/or noncontributory. PHYSICAL EXAM: General Impression: Alert and oriented x3, not in acute distress, coughing HEENT: Normocephalic atraumatic, extra-ocular movements intact, pupils equal and reactive to light bilaterally, mucous membranes moist. Cardiovascular: Heart regular rate and rhythm Chest: Able to complete full sentences, no retractions, no tachypnea, diffuse lung wheezing Abdomen: abdomen soft, non-tender, non-distended, no organomegaly Musculoskeletal: Pulses present and equal in all extremities, no peripheral edema Motor: no focal deficits noted Neurological: CN II-XII grossly intact, no focal motor or sensory deficits noted Skin: Intact with no visualized rashes Psych: Normal affect and mood ED course: 67-year-old female presents emergency department for clinical presentation consistent with subacute bronchitis Nursing notes and chart review was performed EKG interpreted by me: Ventricular rate 96, sinus rhythm,. 182, QRS 94, QTC 396. No IA prolongation, no QTC prolongation, no ST or T-wave changes noted. EKG compared to 09/18/2021 showing no changes. Overall, this EKG is unremarkable Laboratory evaluation obtained. CBC, coag panel, both parents unremarkable. Patient is positive for RSV. X-rays unremarkable. Patient reverted bedside on axial medical condition. Patient requesting to be discharged. This is reasonable disposition consider patient stable well-appearing and has good establish care with her primary care doctor. She has all the medications at home given the patient has completed several courses of steroid treatment I believe it's reasonable to withhold steroids at this time no indication for antibiotics. Patient discharged. Was pt. sent in by a medical professional or institution (LISBET Rivas, ASSURANCE ANALYST, urgent care, hospital, or detention...) When possible be specific @ -Primary care physician's office Did you speak to anyone other than the patient for history (EMS, parent, family, police, friend...)? What history was obtained from this source @ -No Did you review nursing and triage notes (agree or disagree)? Why? @ -I reviewed and agree with nursing and triage notes Were old charts reviewed (outside hosp., previous admission, EMS record, old EKG, old radiological studies, urgent care reports/EKG's, detention records)? Report findings @ -No old charts were reviewed Differential Diagnosis (chest pain, altered mental status, abdominal pain women, abdominal pain men, vaginal bleeding, weakness, fever, dyspnea, syncope, heada rika, dizziness, GI bleed, back pain, seizure, CVA, palpatations, mental health)? @ -Differential Dyspnea: Coronary syndrome, arrhythmia, tamponade, asthma, COPD, pulmonary embolism, pneumonia, pneumothorax, pulmonary effusion, anaphylaxis, diabetic ketoacidosis, flailed chest, pulmonary contusion, diaphragmatic rupture, anemia, neuromuscular, this is not meant to be an all-inclusive list. EKG interpreted by me (3pts min.). @ -As above X-rays interpreted by me (1pt min.). @ -Unremarkable CT interpreted by me (1pt min.). @ -None done U/S interpreted by me (1pt. min.). @ -None done What testing was considered but not performed or refused? (CT, X-rays, U/S, labs)? Why? @ -None What meds were considered but not given or refused? Why? @ -None Did you discuss the management of the patient with other professionals (professionals i.e. , PA, ASSURANCE ANALYST, lab, RT, psych nurse, director of social services, slot operations director, teacher, learning officer, case supervisor)? Give summary @ -No Was smoking cessation discussed for >3mins.? @ -No Was critical care preformed (if so, how long)? @ -No Were there social determinants of health that impacted care today? How? (Homelessness, low income, unemployed, alcoholism, drug addiction, transportation, low edu. Level, literacy, decrease access to med. care, skilled nursing, rehab)? @ -No Was there de-escalation of care discussed even if they declined (Discuss DNR or withdrawal of care, Hospice)? DNR status @ -No What co-morbidities impacted this encounter? (DM, HTN, Smoking, COPD, CAD, Cancer, CVA, ARF, Chemo, Hep., AIDS, mental health diagnosis, sleep apnea, morbid obesity)? @ -None Was patient admitted / discharged? Hospital course, mention meds given and route, prescriptions, significant lab abnormalities, going to OR and other pertinent info. @ -See above Undiagnosed new problem with uncertain prognosis? @ -No Drug Therapy requiring intensive monitoring for toxicity (Heparin, Nitro, Insulin, Cardizem)? @ -No Were any procedures done? @ -No Diagnosis/symptom? @ -RSV bronchiolitis Acute, or Chronic, or Acute on Chronic? @ -default Uncomplicated (without systemic symptoms) or Complicated (systemic symptoms)? @ -default Side effects of treatment? @ -No Exacerbation, Progression, or Severe Exacerbation? @ -No Poses a threat to life or bodily function? How? (Chest pain, [place], [place], pneumonia, PE, COPD, DKA, ARF, appy, cholecystitis, CVA, Diverticulitis, Homicidal, Suicidal, threat to staff... and all critical care pts) @ -No (Eladio Galloway) - Related Data Home Medications Medication Instructions Recorded Confirmed Albuterol Inhaler [Ventolin Hfa 2 puff INHALATION RT-Q6H PRN 07/16/21 11/10/22 Inhaler] HYDROcodone/APAP 10-325MG [[place] 1 tab PO QID PRN 07/16/21 11/10/22 10-325] Levothyroxine Sodium [Synthroid] 100 mcg PO DAILY 07/16/21 11/10/22 amLODIPine [Norvasc] 5 mg PO DAILY 07/16/21 11/10/22 Fluticasone Nasal [place] [Flonase 1 - 2 spray EA NOSTRIL DAILY PRN 09/18/21 11/10/22 Nasal [place]] ALPRAZolam [Xanax] 1 mg PO BID PRN 11/10/22 11/10/22 Allergies Allergy/AdvReac Type Severity Reaction Status Date / Time Sulfa (Sulfonamide Allergy Anaphylaxis Verified 11/10/22 12:37 Antibiotics) Review of Systems ROS Other: All systems not noted in ROS Statement are negative. <Vargas Villafuerte - Last Filed: 11/10/22 11:21> ROS Other: All systems not noted in ROS Statement are negative. <Eladio Galloway - Last Filed: 11/10/22 13:53> ROS Statement: Those systems with pertinent positive or pertinent negative responses have been documented in the HPI. Past Medical History Past Medical History: No Reported History, Fibromyalgia, Hyperlipidemia, Hypertension, Osteoarthritis (OA), Thyroid Disorder Additional Past Medical History / Comment(s): daniel's disease, hx "low intestinal pain and gurgling", hx gout, History of Any Multi-Drug Resistant Organisms: None Reported Past Surgical History: Bowel Resection, Section, Orthopedic Surgery, Tonsillectomy Additional Past Surgical History / Comment(s): colonoscopy, bowel resection for obstruction, rotator cuff left shoulder, surgery left wrist after injury Past Anesthesia/Blood Transfusion Reactions: No Reported Reaction Past Psychological History: No Psychological Hx Reported Smoking Status: Never smoker - Past Family History Mother Family Medical History: Cancer Father Family Medical History: Cancer <Vargas Villafuerte - Last Filed: 11/10/22 11:21> Course Vital Signs 11/10/22 11/10/22 11/10/22 11:18 11:32 11:49 Temperature 100.0 F H Pulse Rate 110 H 89 Respiratory 30 H 26 H 24 Rate Blood Pressure 164/97 116/78 O2 Sat by Pulse 96 96 Oximetry 11/10/22 11/10/22 11/10/22 12:26 12:34 13:23 Temperature Pulse Rate 100 101 H 97 Respiratory 20 Rate Blood Pressure 137/95 O2 Sat by Pulse 97 Oximetry Medical Decision Making - Lab Data Result diagrams: 11/10/22 11:45 11/10/22 11:45 <Eladio Galloway D - Last Filed: 11/10/22 13:53> - Lab Data Lab Results 11/10/22 11/10/22 11/10/22 Range/Units 11:32 11:45 11:45 WBC 12.8 H (3.8-10.6) k/uL RBC 4.19 (3.80-5.40) m/uL Hgb 13.5 (11.4-16.0) gm/dL Hct 39.6 (34.0-46.0) % MCV 94.6 (80.0-100.0) fL MCH 32.1 (25.0-35.0) pg MCHC 34.0 (31.0-37.0) g/dL RDW 13.2 (11.5-15.5) % Plt Count 323 (150-450) k/uL MPV 7.4 Neutrophils % 82 % Lymphocytes % 9 % Monocytes % 5 % Eosinophils % 2 % Basophils % 1 % Neutrophils # 10.5 H (1.3-7.7) k/uL Lymphocytes # 1.2 (1.0-4.8) k/uL Monocytes # 0.7 (0-1.0) k/uL Eosinophils # 0.3 (0-0.7) k/uL Basophils # 0.1 (0-0.2) k/uL PT 10.5 (9.0-12.0) sec INR 1.0 (<1.2) APTT 27.8 (22.0-30.0) sec Sodium (137-145) mmol/L Potassium (3.5-5.1) mmol/L Chloride (98-107) mmol/L Carbon Dioxide (22-30) mmol/L Anion Gap mmol/L BUN (7-17) mg/dL Creatinine (0.52-1.04) mg/dL Est GFR (CKD-EPI)AfAm (>60 ml/min/1.73 sqM) Est GFR (CKD-EPI)NonAf (>60 ml/min/1.73 sqM) Glucose (74-99) mg/dL Plasma Lactic Acid Willian (0.7-2.0) mmol/L Calcium (8.4-10.2) mg/dL Total Bilirubin (0.2-1.3) mg/dL AST (14-36) U/L ALT (4-34) U/L Alkaline Phosphatase (38-126) U/L Total Protein (6.3-8.2) g/dL Albumin (3.5-5.0) g/dL Influenza Type A (PCR) Not Detected (Not Detectd) Influenza Type B (PCR) Not Detected (Not Detectd) RSV (PCR) Detected A (Not Detectd) SARS-CoV-2 (PCR) Not Detected (Not Detectd) 11/10/22 11/10/22 Range/Units 11:45 11:45 WBC (3.8-10.6) k/uL RBC (3.80-5.40) m/uL Hgb (11.4-16.0) gm/dL Hct (34.0-46.0) % MCV (80.0-100.0) fL MCH (25.0-35.0) pg MCHC (31.0-37.0) g/dL RDW (11.5-15.5) % Plt Count (150-450) k/uL MPV Neutrophils % % Lymphocytes % % Monocytes % % Eosinophils % % Basophils % % Neutrophils # (1.3-7.7) k/uL Lymphocytes # (1.0-4.8) k/uL Monocytes # (0-1.0) k/uL Eosinophils # (0-0.7) k/uL Basophils # (0-0.2) k/uL PT (9.0-12.0) sec INR (<1.2) APTT (22.0-30.0) sec Sodium 136 L (137-145) mmol/L Potassium 3.6 (3.5-5.1) mmol/L Chloride 104 (98-107) mmol/L Carbon Dioxide 25 (22-30) mmol/L Anion Gap 7 mmol/L BUN 7 (7-17) mg/dL Creatinine 0.59 (0.52-1.04) mg/dL Est GFR (CKD-EPI)AfAm >90 (>60 ml/min/1.73 sqM) Est GFR (CKD-EPI)NonAf >90 (>60 ml/min/1.73 sqM) Glucose 97 (74-99) mg/dL Plasma Lactic Acid Willian 1.6 (0.7-2.0) mmol/L Calcium 9.0 (8.4-10.2) mg/dL Total Bilirubin 0.5 (0.2-1.3) mg/dL AST 25 (14-36) U/L ALT 21 (4-34) U/L Alkaline Phosphatase 133 H (38-126) U/L Total Protein 7.1 (6.3-8.2) g/dL Albumin 4.1 (3.5-5.0) g/dL Influenza Type A (PCR) (Not Detectd) Influenza Type B (PCR) (Not Detectd) RSV (PCR) (Not Detectd) SARS-CoV-2 (PCR) (Not Detectd) Disposition <Vargas Villafuerte - Last Filed: 11/10/22 11:21> Is patient prescribed a controlled substance at d/c from ED?: No Time of Disposition: 13:53 <Eladio Galloway - Last Filed: 11/10/22 13:53> Clinical Impression: Bronchiolitis Disposition: HOME SELF-CARE Condition: Good Instructions (If sedation given, give patient instructions): Bronchiolitis (ED) Referrals: Corey Castro MD [Primary Care Provider] - 1-2 days
[2022-11-10] MEDS ORDERED: IPRATROPIUM-ALBUTEROL 3 ML NEB INHALATION STA (11:56)
[2022-11-10 12:18] LABS: ALT 21 U/L (4-34); AST 25 U/L (14-36); African American GFR (CKD) >90 (>60 ml/min/1.73 sqM); Albumin 4.1 g/dL (3.5-5.0); Alkaline Phosphatase 133 U/L (38-126); Anion Gap 7 mmol/L; Blood Urea Nitrogen 7 mg/dL (7-17); Carbon Dioxide 25 mmol/L (22-30); Chloride 104 mmol/L (98-107); Glucose 97 mg/dL (74-99); Non-African American GFR(CKD) >90 (>60 ml/min/1.73 sqM); Potassium 3.6 mmol/L (3.5-5.1); Sodium 136 mmol/L (137-145); Total Bilirubin 0.5 mg/dL (0.2-1.3); Total Protein 7.1 g/dL (6.3-8.2)
--- NOTE | 2022-11-10 12:31 | XR ---
EXAMINATION TYPE: XR chest 2V DATE OF EXAM: 11/10/2022 COMPARISON: Prior chest x-ray November 10, 2012 HISTORY: Difficulty in breathing. TECHNIQUE: Frontal and lateral views of the chest are obtained. FINDINGS: There is no suspicious new focal air space opacity, pleural effusion, or pneumothorax seen . The cardiac silhouette size is stable and upper limits of normal. The osseous structures are int act. IMPRESSION: No acute process. No significant change from prior.
[2022-11-10 12:40] LABS: Partial Thromboplastin Time 27.8 sec (22.0-30.0); Prothrombin Time 10.5 sec (9.0-12.0)
[2022-11-10 13:09] LABS: Basophils # (A) 0.1 k/uL (0-0.2); Basophils % (A) 1 %; Eosinophils # (A) 0.3 k/uL (0-0.7); Eosinophils % (A) 2 %; HCT 39.6 % (34.0-46.0); HGB 13.5 gm/dL (11.4-16.0); Lymphocytes # (A) 1.2 k/uL (1.0-4.8); Lymphocytes % (A) 9 %; MCH 32.1 pg (25.0-35.0); MCV 94.6 fL (80.0-100.0); Mean Platelet Volume 7.4; Monocytes # (A) 0.7 k/uL (0-1.0); Monocytes % (A) 5 %; Neutrophils # (A) 10.5 k/uL (1.3-7.7); Neutrophils % (A) 82 %; Platelet Count 323 k/uL (150-450); RBC 4.19 m/uL (3.80-5.40); RDW 13.2 % (11.5-15.5); WBC 12.8 k/uL (3.8-10.6)
[2022-11-10 13:24] VITALS: BP 137/95; PULSE 97; RESP 20
== END 2022-11-10 14:00 | disposition home or self-care (01) ==
LOC: EC 11:13
DX: J21.9 Acute bronchiolitis, unspecified (principal); I10 Essential (primary) hypertension; E07.9 Disorder of thyroid, unspecified; M19.90 Unspecified osteoarthritis, unspecified site; Z88.2 Allergy status to sulfonamides; Z79.899 Other long term (current) drug therapy; Z79.890 Hormone replacement therapy; Z79.1 Long term (current) use of non-steroidal anti-inflammatories (NSAID); Z20.822 Contact with and (suspected) exposure to COVID-19
CPT/HCPCS: 36415; 71046; 80053; 83605; 85025; 85610; 85730; 87636; 93005; 94640; 99285

== ENCOUNTER → 2023-01-28 | Outpatient (CLI) | payer MEDICARE ==
--- NOTE | 2023-01-28 15:40 | BD ---
EXAMINATION TYPE: Axial Bone Density DATE OF EXAM: 01/28/2023 CLINICAL HISTORY: 67 years old Female. ICD-10 CODE: Z78.0 ASYMPTOMATIC [place] Height: 5 ft 2 1/2 in Weight: 191 FRAX RISK QUESTIONS: Alcohol (3 or more units per day): no Family History (Parent hip fracture): yes Glucocorticoids (More than 3mos): yes (Ex: prednisone, prednisolone, methylprednisolone, dexamethasone, and hydrocortisone). History of Fracture in Adulthood: yes Secondary Osteoporosis: 1. Type 1 Diabetes: no 2. Hyperthyroidism: no 3. Menopause before 45: yes 4. Malnutrition: no 5. Chronic liver disease: no Rheumatoid Arthritis: no Current Tobacco Use: no RISK FACTORS HISTORY OF: Surgery to Spine/Hip(right/left)/Wrist (right/left): no Family History of Osteoporosis: no Active: yes Diet low in dairy products/other sources of calcium: no Postmenopausal woman: yes Take estrogen and/or progesterone medications: no Lost more than 2 inches in height since high school: no Frequent falls: no Poor Health: good Hyperparathyroidism: no Adrenal Insufficiency: no MEDICATIONS: Thyroid Medications: yes Which medication: synthroid How Long: many years Additional Medications: xanax, norco,synthroid, norvasc, ventlin as needed, fluticasone Additional History: EXAM MEASUREMENTS: Bone mineral densitometry was performed using the [employer] System. Bone mineral density as measured about the Lumbar spine is: ----- L1-L4(G/cm2): 1.191 T Score Values are as follows: ----- L1: -0.1 ----- L2: -0.4 ----- L3: 0.4 ----- L4: 0.4 ----- L1-L4: 0.1 Z Score Values are as follows: ----- L1: 0.8 ----- L2: 0.5 ----- L3: 1.3 ----- L4: 1.3 ----- L1-L4: 1.0 Bone mineral density has: decreased -0.1 % since study of: 2020 Bone mineral density about the R hip (g/cm2): 0.714 Bone mineral density about the L hip (g/cm2): 0.719 T Score values are as follows: -----R Neck: -2.3 -----L Neck: -2.3 -----R Total: -1.6 -----L Total: -1.8 Z Score values are as follows: -----R Neck: -1.2 -----L Neck: -1.2 -----R Total: -0.7 -----L Total: -0.9 Bone mineral density has: decreased -3.5 % since study of: 2020 FRAX%s: The graph provided illustrates a 25.0 % chance for a major osteoporotic fx and a 5.7 % chance for the hips probability for fx in 10 years time. IMPRESSION: Osteopenia (T Score between -2.5 and -1). There is slightly increased risk of fracture and the patient may be considered for treatment. Re-Screen 2-5 years. NOTE: T-SCORE=SD OF THE YOUNG ADULT MEAN.
== END | disposition home or self-care (01) ==
LOC: RADBDWWP 07:50
PROVIDERS: ATTEND Family Medicine
DX: M85.89 Other specified disorders of bone density and structure, multiple sites (principal); Z78.0 Asymptomatic menopausal state
CPT/HCPCS: 77080

== ENCOUNTER → 2023-08-26 | Day surgery (SDC) | payer MEDICARE ==
[2023-08-24 15:41] VITALS: BMI 33.8
[~2023-08-26] MED LIST changes: +LIDOCAINE 1% INJ 10MG/ML (20 ML MDV) ONE; +MIDAZOLAM 2 MG/2 ML VIAL ONE; +PROPOFOL 10 MG/ML 20 ML VIAL IV ONE
[2023-08-26 07:44] VITALS: TEMP 97.2
--- NOTE | 2023-08-26 08:05 | P.GSHP ---
History of Present Illness H&P Date: 08/26/23 CHIEF COMPLAINT: GERD and colitis HISTORY OF PRESENT ILLNESS: The patient is a 67-year-old grmale who presents with gastroesophageal reflux disease and need for colon screen. Upper and lower endoscopy were offered for further evaluation and management. PAST MEDICAL HISTORY: Please see list. PAST SURGICAL HISTORY: Please see list. MEDICATIONS: Please see list. ALLERGIES: Please see list. SOCIAL HISTORY: No illicit drug use FAMILY HISTORY: No reports of Crohn disease or ulcerative colitis. REVIEW OF ORGAN SYSTEMS: CONSTITUTIONAL: No reports of fevers or chills. GI: Change in bowel habits. PHYSICAL EXAM: VITAL SIGNS: Stable GENERAL: Well-developed pleasant in no acute distress. HEENT: No scleral icterus. Extraocular movements grossly intact. Moist buccal mucosa. NECK: Supple without lymphadenopathy. CHEST: Unlabored respirations. Equal bilateral excursions. CARDIOVASCULAR: Regular rate and rhythm. Distal 2+ pulses. ABDOMEN: Soft, nondistended. MUSCULOSKELETAL: No clubbing, cyanosis, or edema. ASSESSMENT: 1. Gastroesophageal reflux disease 2. Colitis PLAN: 1. Recommend proceeding with an upper and lower endoscopy Past Medical History Past Medical History: Fibromyalgia, Hyperlipidemia, Hypertension, Osteoarthritis (OA), Thyroid Disorder Additional Past Medical History / Comment(s): Hussein's disease-automimmune disorder-remission, heartburn and abdominal pain-started in March 2023, had a piece of steak stuck in throat, "low intestinal pain and gurgling"-describes as pain similar to gall stones,liquid stools, hx gout one time years ago, RSV Nov 2022 History of Any Multi-Drug Resistant Organisms: None Reported Past Surgical History: Bowel Resection, Section, Orthopedic Surgery, Tonsillectomy Additional Past Surgical History / Comment(s): colonoscopy, bowel resection for obstruction, rotator cuff left shoulder, surgery left wrist after injury,ORIF left ankle Past Anesthesia/Blood Transfusion Reactions: No Reported Reaction Smoking Status: Never smoker - Past Family History Mother Family Medical History: Cancer Additional Family Medical History / Comment(s): breast CA Father Family Medical History: Cancer Additional Family Medical History / Comment(s): lymphoma Medications and Allergies Home Medications Medication Instructions Recorded Confirmed Type HYDROcodone/APAP 10-325MG [Start 1 tab PO QID PRN 07/16/21 08/26/23 History 10-325] Levothyroxine Sodium [Synthroid] 100 mcg PO QAM 07/16/21 08/26/23 History amLODIPine [Norvasc] 5 mg PO QAM 07/16/21 08/26/23 History Fluticasone Nasal [place] [Flonase 1 - 2 spray EA NOSTRIL DAILY PRN 09/18/21 08/26/23 History Nasal [place]] ALPRAZolam [Xanax] 1 mg PO TID PRN 11/10/22 08/26/23 History Ascorbic Acid [Vitamin C] 1,000 mg PO DAILY 08/24/23 08/26/23 History Diphenoxylate HCl/Atropine 1 - 2 tab PO QID PRN 08/24/23 08/26/23 History [Lomotil 2.5-0.025 mg Tablet] Levocetirizine Dihydrochloride 5 mg PO DAILY 08/24/23 08/26/23 History [Xyzal] Allergies Allergy/AdvReac Type Severity Reaction Status Date / Time Sulfa (Sulfonamide Allergy Anaphylaxis Verified 08/26/23 07:32 Antibiotics) Surgical - Exam Vital Signs Temp Pulse Resp BP Pulse Ox 97.2 F L 83 16 150/95 95 08/26/23 07:32 08/26/23 07:32 08/26/23 07:32 08/26/23 07:32 08/26/23 07:32
--- NOTE | 2023-08-26 08:59 | P.PCN ---
Date of Procedure: 08/26/23 Description of Procedure: PREOPERATIVE DIAGNOSIS: Gastroesophageal reflux disease. Epigastric abdominal pain POSTOPERATIVE DIAGNOSIS: Gastroesophageal reflux disease. Gastritis. Distal esophageal spasm Diaphragmatic hiatal hernia OPERATION: Esophagogastroduodenoscopy with biopsies along the esophagus, antrum and duodenum SURGEON: Mary Jane Juárez MD ANESTHESIA: MAC. INDICATIONS: The patient is a 67-year-old female who presents with reflux disease. Benefits and risks of the procedure were described. Informed consent was obtained. DESCRIPTION: The patient was brought into the endoscopy suite and laid in the left lateral decubitus position. An Olympus gastroscope was passed along the posterior oropharynx down to the distal esophagus where the squamocolumnar junction was encountered at 36 cm from the incisors. The stomach was entered and bile reflux was found. Additional findings are listed below. Biopsies with cold forceps were obtained of the antrum. The first through third portion of the duodenum was examined. Retroflexion of the scope confirmed Hill grade 2 lower esophageal valve. The squamocolumnar junction demonstrated LA grade B erosive esophagitis. The stomach was desufflated. The patient tolerated the procedure well. FINDINGS: Squamocolumnar junction 36 cm from the incisors. Diaphragmatic hiatus at 37 cm. Hiatal hernia, 1 cm Hill grade 2 lower esophageal valve. LA grade A erosive esophagitis. Biopsies obtained of the duodenum and esophagus Chronic gastritis with biopsies obtained. RECOMMENDATIONS: Upper endoscopy as needed.
--- NOTE | 2023-08-26 09:09 | P.PCN ---
Date of Procedure: 08/26/23 Description of Procedure: PREOPERATIVE DIAGNOSIS: Colitis POSTOPERATIVE DIAGNOSIS: Diverticulosis OPERATION: Colonoscopy to the cecum, ileocecal valve and appendiceal orifice. SURGEON: Mary Jane Juárez MD. ANESTHESIA: MAC. INDICATIONS: The patient is a 67-year-old female who presents with change in bowel habits including colitis. Benefits and risks were described and informed consent was obtained. DESCRIPTION OF PROCEDURE: The patient had undergone PEG prep. The patient had been brought into the operating room and laid in the left lateral decubitus position. After adequate intravenous sedation, the rectum was examined with 2% lidocaine jelly. No external hemorrhoids were encountered. The rectal tone was within normal limits. No lesions were palpated in the rectal vault. An Olympus colonoscope was advanced until the cecum, ileocecal valve and appendiceal orifice were clearly viewed. The prep was fair. Moderate redundant sigmoid colon and sigmoid diverticulosis was encountered. No colonic polyps were found. No evidence of focal colitis was found. Retroflexion of the scope demonstrated grade 1 internal hemorrhoids without active bleeding or inflammation. The colon was desufflated. The patient had tolerated the procedure well. Withdrawal time was over 6 minutes. FINDINGS: Aronchick preparation quality scale 2+ (1-5) Internal hemorrhoids, grade 1 No external prolapsed hemorrhoids. No arteriovenous malformations. No adenomatous polyps. No focal colitis. Moderate sigmoid diverticulosis with redundancy RECOMMENDATIONS: Lower endoscopy 10 years, 2032 Plan - Discharge Summary Discharge Rx Participant: No New Discharge Prescriptions: Continue HYDROcodone/APAP 10-325MG [[place] 10-325] 1 tab PO QID PRN PRN Reason: Pain Levocetirizine Dihydrochloride [Xyzal] 5 mg PO DAILY Ascorbic Acid [Vitamin C] 1,000 mg PO DAILY amLODIPine [Norvasc] 5 mg PO QAM Levothyroxine Sodium [Synthroid] 100 mcg PO QAM Fluticasone Nasal [place] [Flonase Nasal [place]] 1 - 2 spray EA NOSTRIL DAILY PRN PRN Reason: Congestion ALPRAZolam [Xanax] 1 mg PO TID PRN PRN Reason: Anxiety Diphenoxylate HCl/Atropine [Lomotil 2.5-0.025 mg Tablet] 1 - 2 tab PO QID PRN PRN Reason: stomach pain Discharge Medication List HYDROcodone/APAP 10-325MG [[place] 10-325] 1 tab PO QID PRN 07/16/21 [History] Levothyroxine Sodium [Synthroid] 100 mcg PO QAM 07/16/21 [History] amLODIPine [Norvasc] 5 mg PO QAM 07/16/21 [History] Fluticasone Nasal [place] [Flonase Nasal [place]] 1 - 2 spray EA NOSTRIL DAILY PRN 09/18/21 [History] ALPRAZolam [Xanax] 1 mg PO TID PRN 11/10/22 [History] Ascorbic Acid [Vitamin C] 1,000 mg PO DAILY 08/24/23 [History] Diphenoxylate HCl/Atropine [Lomotil 2.5-0.025 mg Tablet] 1 - 2 tab PO QID PRN 08/24/23 [History] Levocetirizine Dihydrochloride [Xyzal] 5 mg PO DAILY 08/24/23 [History] Follow up Appointment(s)/Referral(s): Mary Jane Juárez MD [STAFF PHYSICIAN] - 09/15/23 9:30 am Patient Instructions/Handouts: *Surgery [facility] - (Anesthesia) Discharge Instructions Outpatient Surgery, Diverticulosis (DC), Diverticulosis Diet (GEN) Activity/Diet/Wound Care/Special Instructions: Repeat colonoscopy in 10 years, 2032 Discharge Disposition: HOME SELF-CARE
[2023-08-26 09:21] VITALS: BP 121/75; PULSE 66; RESP 18
== END | disposition home or self-care (01) ==
LOC: ORWHC2ENDO 07:16
PROVIDERS: ATTEND Surgery Plastic and Reconstructive Surgery
DX: K29.50 Unspecified chronic gastritis without bleeding (principal); K52.9 Noninfective gastroenteritis and colitis, unspecified; K21.00 Gastro-esophageal reflux disease with esophagitis, without bleeding; K44.9 Diaphragmatic hernia without obstruction or gangrene; K57.30 Diverticulosis of large intestine without perforation or abscess without bleeding; K64.0 First degree hemorrhoids; K31.89 Other diseases of stomach and duodenum; I10 Essential (primary) hypertension; E78.5 Hyperlipidemia, unspecified; M19.90 Unspecified osteoarthritis, unspecified site; M79.7 Fibromyalgia; E07.9 Disorder of thyroid, unspecified; Z79.890 Hormone replacement therapy; Z98.890 Other specified postprocedural states; Z80.3 Family history of malignant neoplasm of breast; Z79.899 Other long term (current) drug therapy; Z88.2 Allergy status to sulfonamides
CPT/HCPCS: 45378; 88305; 43239; J2250; J2001; J2704

== ENCOUNTER → 2024-02-03 | Outpatient (CLI) | payer MEDICARE ==
--- NOTE | 2024-02-04 13:02 | MM ---
Reason for Exam: Screening (asymptomatic). Last mammogram was performed 1 year(s) and 11 month(s) ago. Patient History: Menarche at age 13. First Full-Term at age 16. Postmenopausal. Maternal aunt had breast cancer. Risk Values: Holly 5 year model risk: 1.1%. NCI Lifetime model risk: 3.5%. Prior Study Comparison: 07/13/2000 Bilateral Screening Mammogram, LOCATED WITHIN [facility]. 03/12/2022 Bilateral Screening Mammogram, LOCATED WITHIN [facility]. Tissue Density: There are scattered areas of fibroglandular density. Findings: Analyzed By CAD. There is no suspicious group of microcalcifications or new suspicious mass in either breast. Overall Assessment: Benign, BI-RAD 2 Management: Screening Mammogram of both breasts in 1 year. . Patient should continue monthly self-breast exams. A clinical breast exam by your physician is recommended on an annual basis. This exam should not preclude additional follow-up of suspicious palpable abnormalities. Note on Holly scores and lifetime risk: 1. A Holly score greater than 3% is considered moderate risk. If this is the case, consider specialist referral to assess eligibility for a risk reducing agent. 2. If overall lifetime risk for the development of breast cancer is 20% or higher, the patient may qualify for future screening with alternating mammogram and breast MRI. Electronically signed and approved by: Balbir Aranda M.D. Radiologis
== END | disposition home or self-care (01) ==
LOC: RADMAMWWP 06:56
PROVIDERS: ATTEND Family Medicine
DX: Z12.31 Encounter for screening mammogram for malignant neoplasm of breast (principal); Z78.0 Asymptomatic menopausal state; Z80.3 Family history of malignant neoplasm of breast
CPT/HCPCS: 77063; 77067

== ENCOUNTER → 2024-08-26 | Outpatient (CLI) | payer MEDICARE ==
--- NOTE | 2024-08-26 11:13 | FL ---
EXAMINATION TYPE: FL barium swallow DATE OF EXAM: 08/26/2024 CLINICAL INDICATION: 68-year-old female getting stuck/lodged in the throat, history of hiatal hernia. K44.9 DIAPHRAGMATIC HERNIA WITHOUT OBSTRUCTION COMPARISON: None Total fluoroscopy time 1 minute 55 seconds. Total images: 52. Total DAP: 45 mGycm2. FINDINGS: The swallowing mechanism is normal and hypopharyngeal anatomy is preserved. The CP muscle contracts n ormally. The thoracic portion has a normal course and caliber. Mild to moderate tertiary peristaltic waves are encountered. There is some delayed clearance of contrast from the esophagus with blunted secondary s tripping waves. The mucosa is normal and no persistent filling defect is encountered. There is a tiny sliding hiatal hernia demonstrated. Gastroesophageal reflux could not be elicited during the course of the exam. IMPRESSION: 1. Tiny sliding hiatal hernia. 2. Mild esophageal dysmotility. 3. No abnormal stricture. [facility], , 08/26/2024 11:10 AM
== END | disposition home or self-care (01) ==
LOC: RADFLMAIN 10:00
PROVIDERS: ATTEND Surgery Plastic and Reconstructive Surgery
CPT/HCPCS: 74220